=== PATIENT | female | born 1940 | race Caucasian/White ===

== ENCOUNTER → 2016-03-20 | Outpatient (REF) | payer MEDICARE, OTHER ==
[2016-03-20 12:44] LABS: MEAN CORPUSCULAR HEMOGLOBIN 30.3 pg (27.0-33.0); MEAN CORPUSCULAR VOLUME 94.9 fl (80.0-96.0); RED CELL DISTRIBUTION WIDTH 12.6 % (11.5-14.5); WHITE BLOOD COUNT 6.7 K/mm3 (4.0-10.0)
[2016-03-20 12:52] LABS: ALBUMIN 3.8 GM/DL (3.2-5.2); ALBUMIN/GLOBULIN RATIO 1.12 (1.00-1.93); BILIRUBIN,TOTAL 0.4 MG/DL (0.2-1.0); CALCIUM LEVEL 9.8 MG/DL (8.8-10.2); CREATININE FOR GFR 1.3 MG/DL (0.55-1.02); GLOMERULAR FILTRATION RATE 42.5 (>39); TOTAL PROTEIN 7.2 GM/DL (6.4-8.2)
[2016-03-20 12:54] LABS: POTASSIUM SERUM 5.5 MEQ/L (3.5-5.1)
== END ==
PROVIDERS: ATTEND Nurse Practitioner Family
DX: S81.802A Unspecified open wound, left lower leg, initial encounter (principal); X58.XXXA Exposure to other specified factors, initial encounter; Y92.9 Unspecified place or not applicable; Y93.9 Activity, unspecified; Y99.9 Unspecified external cause status

== ENCOUNTER → 2016-07-25 | Outpatient (REF) | payer MEDICARE, OTHER | LOC: M LAB REF 12:40 | PROVIDERS: ATTEND Nurse Practitioner Family | DX: S81.802A Unspecified open wound, left lower leg, initial encounter (principal); X58.XXXA Exposure to other specified factors, initial encounter; Y92.9 Unspecified place or not applicable; Y93.9 Activity, unspecified; Y99.8 Other external cause status ==

== ENCOUNTER → 2016-07-31 | Outpatient (REF) | payer MEDICARE, OTHER ==
[2016-07-31 10:56] LABS: MEAN CORPUSCULAR HEMOGLOBIN 31.7 pg (27.0-33.0); MEAN CORPUSCULAR VOLUME 96.1 fl (80.0-96.0); RED CELL DISTRIBUTION WIDTH 13.4 % (11.5-14.5); WHITE BLOOD COUNT 5.4 K/mm3 (4.0-10.0)
[2016-07-31 11:36] LABS: ALBUMIN 3.6 GM/DL (3.2-5.2); BILIRUBIN,TOTAL 0.5 MG/DL (0.2-1.0); CALCIUM LEVEL 9.3 MG/DL (8.8-10.2); CREATININE FOR GFR 1.19 MG/DL (0.55-1.02); GLOMERULAR FILTRATION RATE 46.9 (>39); POTASSIUM SERUM 4.3 MEQ/L (3.5-5.1); TOTAL PROTEIN 7.2 GM/DL (6.4-8.2)
== END ==
PROVIDERS: ATTEND Nurse Practitioner Family
DX: E03.9 Hypothyroidism, unspecified (principal); N18.9 Chronic kidney disease, unspecified

== ENCOUNTER → 2016-11-09 | Outpatient (REF) | payer MEDICARE, OTHER, MEDICAID | LOC: M LAB REF 16:24 | PROVIDERS: ATTEND Nurse Practitioner Family | DX: L03.116 Cellulitis of left lower limb (principal) ==

== ENCOUNTER → 2017-02-13 | Outpatient (REF) | payer MEDICARE, OTHER, MEDICAID | LOC: M LAB REF 12:53 | DX: S81.802A Unspecified open wound, left lower leg, initial encounter (principal); I87.2 Venous insufficiency (chronic) (peripheral); X58.XXXA Exposure to other specified factors, initial encounter; Y92.9 Unspecified place or not applicable; Y99.9 Unspecified external cause status | CPT/HCPCS: 87186 ==

== ENCOUNTER → 2017-04-23 | Outpatient (REF) | payer MEDICARE, OTHER, MEDICAID | LOC: M LAB REF 04-24 11:43 | DX: S81.802A Unspecified open wound, left lower leg, initial encounter (principal); S81.801A Unspecified open wound, right lower leg, initial encounter; X58.XXXA Exposure to other specified factors, initial encounter; Y92.9 Unspecified place or not applicable; Y93.9 Activity, unspecified | CPT/HCPCS: 87070; 87077; 87186 ==

== ENCOUNTER 2017-05-15 14:01 | Outpatient (RCR) | payer MEDICARE, OTHER, MEDICAID | END 2017-06-10 | LOC: M PT 14:01 | DX: Z51.89 Encounter for other specified aftercare (principal); I89.0 Lymphedema, not elsewhere classified | CPT/HCPCS: 97140 ==

== ENCOUNTER → 2017-06-07 | Outpatient (CLI) | payer MEDICARE, OTHER, MEDICAID | LOC: M RAD 10:16 | DX: I87.312 Chronic venous hypertension (idiopathic) with ulcer of left lower extremity (principal) | CPT/HCPCS: 93971 ==

== ENCOUNTER 2017-06-12 13:16 | Outpatient (RCR) | payer MEDICARE, OTHER, MEDICAID | END 2017-07-11 | LOC: M PT 13:16 | DX: Z51.89 Encounter for other specified aftercare (principal); I89.0 Lymphedema, not elsewhere classified | CPT/HCPCS: 97140 ==

== ENCOUNTER → 2017-06-14 | Outpatient (REF) | payer MEDICARE, OTHER, MEDICAID ==
[2017-06-14 10:02] LABS: HEMATOCRIT 41.1 % (36.0-47.0); HEMOGLOBIN 12.8 g/dl (12.0-15.5); MEAN CORPUSCULAR HEMOGLOBIN 29.4 pg (27.0-33.0); MEAN CORPUSCULAR HGB CONC 31.1 g/dl (32.0-36.5); MEAN CORPUSCULAR VOLUME 94.5 fl (80.0-96.0); PLATELET COUNT, AUTOMATED 249 10^3/uL (150-450); RED BLOOD COUNT 4.35 10^6/uL (4.00-5.40); RED CELL DISTRIBUTION WIDTH 13.1 % (11.5-14.5); WHITE BLOOD COUNT 6.7 10^3/uL (4.0-10.0)
[2017-06-14 10:34] LABS: ALBUMIN 3.3 GM/DL (3.2-5.2); ALBUMIN/GLOBULIN RATIO 0.85 (1.00-1.93); ALKALINE PHOSPHATASE 76 U/L (45-117); ALT/SGPT 16 U/L (12-78); ANION GAP 10 MEQ/L (8-16); AST/SGOT 16 U/L (7-37); BILIRUBIN,TOTAL 0.4 MG/DL (0.2-1.0); BLOOD UREA NITROGEN 28 MG/DL (7-18); CALCIUM LEVEL 9.1 MG/DL (8.8-10.2); CARBON DIOXIDE LEVEL 29 MEQ/L (21-32); CHLORIDE LEVEL 103 MEQ/L (98-107); CREATININE FOR GFR 1.18 MG/DL (0.55-1.30); GLOMERULAR FILTRATION RATE 47.3 (>39); GLUCOSE, FASTING 96 MG/DL (70-100); POTASSIUM SERUM 4.2 MEQ/L (3.5-5.1); SODIUM LEVEL 142 MEQ/L (136-145); TOTAL PROTEIN 7.2 GM/DL (6.4-8.2)
[2017-06-14 11:42] LABS: ESTIMATED AVERAGE GLUCOSE 111 MG/DL (60-110); HEMOGLOBIN A1c 5.5 %
== END ==
DX: I10 Essential (primary) hypertension (principal); E66.9 Obesity, unspecified
CPT/HCPCS: 80053

== ENCOUNTER 2017-07-12 13:09 | Outpatient (RCR) | payer MEDICARE, OTHER, MEDICAID | END 2017-08-10 | LOC: M PT 07-16 13:24 | DX: Z51.89 Encounter for other specified aftercare (principal); I89.0 Lymphedema, not elsewhere classified | CPT/HCPCS: 97140 ==

== ENCOUNTER 2017-08-12 12:50 | Outpatient (RCR) | payer MEDICARE, OTHER, MEDICAID | END 2017-09-10 | LOC: M PT 12:50 | DX: Z51.89 Encounter for other specified aftercare (principal); I89.0 Lymphedema, not elsewhere classified | CPT/HCPCS: 97140 ==

== ENCOUNTER → 2017-12-31 | Outpatient (REF) | payer MEDICARE, OTHER, MEDICAID ==
[2017-12-31 10:44] LABS: HEMATOCRIT 41.2 % (36.0-47.0); MEAN CORPUSCULAR HEMOGLOBIN 30.1 pg (27.0-33.0); MEAN CORPUSCULAR HGB CONC 31.6 g/dl (32.0-36.5); MEAN CORPUSCULAR VOLUME 95.4 fl (80.0-96.0); PLATELET COUNT, AUTOMATED 192 10^3/uL (150-450); RED BLOOD COUNT 4.32 10^6/uL (4.00-5.40); RED CELL DISTRIBUTION WIDTH 13.3 % (11.5-14.5); WHITE BLOOD COUNT 5.5 10^3/uL (4.0-10.0)
[2017-12-31 11:23] LABS: ALBUMIN 3.5 GM/DL (3.2-5.2); ALBUMIN/GLOBULIN RATIO 0.95 (1.00-1.93); ALKALINE PHOSPHATASE 71 U/L (45-117); ALT/SGPT 21 U/L (12-78); ANION GAP 9 MEQ/L (8-16); AST/SGOT 19 U/L (7-37); BILIRUBIN,TOTAL 0.4 MG/DL (0.2-1.0); BLOOD UREA NITROGEN 27 MG/DL (7-18); CALCIUM LEVEL 9.3 MG/DL (8.8-10.2); CARBON DIOXIDE LEVEL 27 MEQ/L (21-32); CHLORIDE LEVEL 105 MEQ/L (98-107); GLOMERULAR FILTRATION RATE 57.2 (>39); GLUCOSE, FASTING 89 MG/DL (70-100); POTASSIUM SERUM 4.3 MEQ/L (3.5-5.1); SODIUM LEVEL 141 MEQ/L (136-145); TOTAL PROTEIN 7.2 GM/DL (6.4-8.2)
== END ==
DX: I95.9 Hypotension, unspecified (principal); Z79.899 Other long term (current) drug therapy
CPT/HCPCS: 84443

== ENCOUNTER → 2018-12-30 | Outpatient (REF) | payer MEDICARE, OTHER, MEDICAID ==
[2018-12-30 10:14] LABS: CALCIUM LEVEL 9.8 MG/DL (8.8-10.2); CREATININE FOR GFR 1.19 MG/DL (0.55-1.30); GLOMERULAR FILTRATION RATE 46.7 (>39); POTASSIUM SERUM 4.2 MEQ/L (3.5-5.1)
== END ==
PROVIDERS: ATTEND Nurse Practitioner Adult Health
DX: Z79.899 Other long term (current) drug therapy (principal)

== ENCOUNTER → 2019-06-30 | Outpatient (REF) | payer MEDICARE, OTHER, MEDICAID ==
[2019-06-30 12:51] LABS: HEMOGLOBIN 12.7 g/dl (12.0-15.5); MEAN CORPUSCULAR VOLUME 96.9 fl (80.0-96.0); PLATELET COUNT, AUTOMATED 176 10^3/uL (150-450); RED BLOOD COUNT 4.23 10^6/uL (4.00-5.40); WHITE BLOOD COUNT 5.6 10^3/uL (4.0-10.0)
[2019-06-30 13:24] LABS: ALBUMIN 3.2 GM/DL (3.2-5.2); BILIRUBIN,TOTAL 0.4 MG/DL (0.2-1.0); CALCIUM LEVEL 9.4 MG/DL (8.8-10.2); CREATININE FOR GFR 1.12 MG/DL (0.55-1.30); POTASSIUM SERUM 4.6 MEQ/L (3.5-5.1); THYROID STIMULATING HORMONE 1.93 uIU/ML (0.358-3.740); TOTAL PROTEIN 6.8 GM/DL (6.4-8.2)
== END ==
PROVIDERS: ATTEND Registered Nurse
DX: I10 Essential (primary) hypertension (principal)

== ENCOUNTER → 2020-01-22 | Outpatient (REF) | payer MEDICARE, OTHER, MEDICAID | PROVIDERS: ATTEND Internal Medicine | DX: Z20.828 Contact with and (suspected) exposure to other viral communicable diseases (principal) ==

== ENCOUNTER → 2020-01-27 | Outpatient (REF) | payer MEDICARE, OTHER, MEDICAID ==
[2020-01-27 16:45] LABS: INFLUENZA A AMPLIFICATION NEGATIVE (NEGATIVE); INFLUENZA B AMPLIFICATION NEGATIVE (NEGATIVE)
== END ==
PROVIDERS: ATTEND Internal Medicine
DX: Z20.828 Contact with and (suspected) exposure to other viral communicable diseases (principal)
CPT/HCPCS: 87502; U0003

== ENCOUNTER 2020-01-30 12:45 | Outpatient (CLI) | payer MEDICARE, OTHER, MEDICAID ==
[2020-01-30 12:45] VITALS: BP 171/77
[~2020-01-30 12:45] MED LIST: ALBUTEROL 90 MCG/ACT 8GM HFA INHALER INH PRN; ALBUTEROL SULFATE 2.5 MG/0.5 ML INH NEB SOLN INH PRN; EPINEPHrine INJ 1 MG/ML 1ML AMP IM PRN; NS 1,000 ML IV SCH; diphenhydrAMINE 50MG/ML VIAL (J1200) IV PRN; methylPREDNISolone 125MG 2ML VIAL IV PRN
[2020-01-30] MEDS ORDERED: BAMLANIVIMAB 700 MG in NS 180 ML IV ONE (14:00)
[2020-01-30 15:10] VITALS: BP 174/76
[2020-01-30] MEDS ORDERED: ACETAMINOPHEN TAB 650MG DOSE (2X325MG) PO ONE (15:30)
[2020-01-30] MEDS ORDERED: methylPREDNISolone 125MG 2ML VIAL IV ONE (15:30)
[2020-01-30 16:14] VITALS: BP 167/71
[2020-01-30 16:44] VITALS: BP 174/86
[2020-01-30 17:12] VITALS: BP 179/75
[2020-01-30 18:31] VITALS: BP 184/77
== END 2020-01-30 18:45 | disposition home or self-care (01) ==
LOC: M OPCLI4 12:45 → M 4MAIN 12:45 → M OPCLI4 18:45
PROVIDERS: ATTEND Internal Medicine
DX: U07.1 COVID-19 (principal); Z88.0 Allergy status to penicillin
CPT/HCPCS: 96374; J2930; M0239

== ENCOUNTER → 2020-02-01 | Outpatient (REF) | payer MEDICARE, OTHER, MEDICAID | PROVIDERS: ATTEND Internal Medicine | DX: Z20.828 Contact with and (suspected) exposure to other viral communicable diseases (principal) ==

== ENCOUNTER → 2020-02-08 | Outpatient (REF) | payer MEDICARE, OTHER, MEDICAID | PROVIDERS: ATTEND Internal Medicine | DX: Z20.828 Contact with and (suspected) exposure to other viral communicable diseases (principal) ==

== ENCOUNTER → 2020-02-15 | Outpatient (REF) | payer MEDICARE, OTHER, MEDICAID | PROVIDERS: ATTEND Internal Medicine | DX: Z11.52 Encounter for screening for COVID-19 (principal) ==

== ENCOUNTER → 2020-02-22 | Outpatient (REF) | payer MEDICARE, OTHER, MEDICAID | PROVIDERS: ATTEND Internal Medicine | DX: Z20.822 Contact with and (suspected) exposure to COVID-19 (principal) ==

== ENCOUNTER → 2020-02-29 | Outpatient (REF) | payer MEDICARE, OTHER, MEDICAID | PROVIDERS: ATTEND Internal Medicine | DX: Z20.822 Contact with and (suspected) exposure to COVID-19 (principal) ==

== ENCOUNTER → 2020-03-07 | Outpatient (REF) | payer MEDICARE, OTHER, MEDICAID | PROVIDERS: ATTEND Internal Medicine | DX: Z20.822 Contact with and (suspected) exposure to COVID-19 (principal) ==

== ENCOUNTER → 2020-03-14 | Outpatient (REF) | payer MEDICARE, OTHER, MEDICAID | PROVIDERS: ATTEND Internal Medicine | DX: Z20.822 Contact with and (suspected) exposure to COVID-19 (principal) ==

== ENCOUNTER → 2020-03-21 | Outpatient (REF) | payer MEDICARE, OTHER, MEDICAID | PROVIDERS: ATTEND Internal Medicine | DX: Z20.822 Contact with and (suspected) exposure to COVID-19 (principal) ==

== ENCOUNTER → 2020-03-28 | Outpatient (REF) | payer MEDICARE, OTHER, MEDICAID | PROVIDERS: ATTEND Internal Medicine | DX: Z20.822 Contact with and (suspected) exposure to COVID-19 (principal) ==

== ENCOUNTER → 2020-06-07 | Outpatient (REF) | payer MEDICARE, OTHER, MEDICAID ==
[2020-06-07 11:04] LABS: BASO # 0.1 10^3/uL (0.0-0.2); BASO % 1.1 % (0.0-1.0); EOS # 0.2 10^3/uL (0.0-0.5); EOS % 3.8 % (0.0-3.0); HEMATOCRIT 44.1 % (36.0-47.0); HEMOGLOBIN 13.4 g/dl (12.0-15.5); LYMPH # 1.4 10^3/uL (1.5-5.0); LYMPH % 29.6 % (24.0-44.0); MEAN CORPUSCULAR HEMOGLOBIN 29.8 pg (27.0-33.0); MEAN CORPUSCULAR HGB CONC 30.4 g/dl (32.0-36.5); MEAN CORPUSCULAR VOLUME 98.2 fl (80.0-96.0); MONO # 0.5 10^3/uL (0.0-0.8); MONO % 9.5 % (2.0-8.0); NEUTROPHILS # 2.6 10^3/uL (1.5-8.5); NEUTROPHILS % 55.8 % (36.0-66.0); PLATELET COUNT, AUTOMATED 179 10^3/uL (150-450); RED BLOOD COUNT 4.49 10^6/uL (4.00-5.40); WHITE BLOOD COUNT 4.7 10^3/uL (4.0-10.0)
[2020-06-07 11:33] LABS: ALBUMIN 3.7 GM/DL (3.2-5.2); ALT/SGPT 16 U/L (12-78); BILIRUBIN,TOTAL 0.4 MG/DL (0.2-1.0); BLOOD UREA NITROGEN 24 MG/DL (7-18); CALCIUM LEVEL 9.8 MG/DL (8.8-10.2); CARBON DIOXIDE LEVEL 31 MEQ/L (21-32); CHLORIDE LEVEL 102 MEQ/L (98-107); CHOLESTEROL LEVEL 162 MG/DL (<200); CHOLESTEROL RISK RATIO 2.655 (<5); CREATININE FOR GFR 0.93 MG/DL (0.55-1.30); GLOMERULAR FILTRATION RATE > 60.0 (>32); GLUCOSE, FASTING 93 MG/DL (70-100); HDL CHOLESTEROL 61 MG/DL (>40); LDL CHOLESTEROL 78 MG/DL (<100); NON-HDL-C 101 MG/DL; POTASSIUM SERUM 4.1 MEQ/L (3.5-5.1); SODIUM LEVEL 139 MEQ/L (136-145); TOTAL PROTEIN 7.5 GM/DL (6.4-8.2); TRIGLYCERIDES LEVEL 113 MG/DL (<150)
== END ==
PROVIDERS: ATTEND Nurse Practitioner Adult Health
DX: E78.2 Mixed hyperlipidemia (principal); M15.0 Primary generalized (osteo)arthritis; I10 Essential (primary) hypertension

== ENCOUNTER 2021-11-23 11:03 | Inpatient (IN) | payer MEDICARE, OTHER, MEDICAID ==
[~2021-11-23] VITALS: Ht 170.2 cm; Wt 167.3 kg
[2021-11-23] MEDS ORDERED: CEFTAROLINE FOSAMIL 600 MG in D5W MINI-BAG PLUS 50 ML IV ONE (11:45)
[2021-11-23 12:47] LABS: HEMATOCRIT 36.5 % (36.0-47.0); HEMOGLOBIN 11.5 g/dl (12.0-15.5); MEAN CORPUSCULAR HGB CONC 31.5 g/dl (32.0-36.5); MEAN CORPUSCULAR VOLUME 98.4 fl (80.0-96.0); PLATELET COUNT, AUTOMATED 152 10^3/uL (150-450); RED BLOOD COUNT 3.71 10^6/uL (4.00-5.40); WHITE BLOOD COUNT 23.4 10^3/uL (4.0-10.0)
[2021-11-23] MEDS ORDERED: ACETAMINOPHEN TAB 650MG DOSE (2X325MG) PO ONE (12:55)
[2021-11-23] MEDS ORDERED: TRAM50TA2 PO (13:17)
[2021-11-23] MEDS ORDERED: D3 S20002 PO (13:17)
[2021-11-23] MEDS ORDERED: METO1TAB7 PO (13:17)
[2021-11-23] MEDS ORDERED: TOLT4CAP3 PO (13:17)
[2021-11-23] MEDS ORDERED: HALO0.052 TOP (13:17)
[2021-11-23] MEDS ORDERED: BENG1CRE TOP (13:17)
[2021-11-23] MEDS ORDERED: OMEP1CAP71 PO (13:17)
[2021-11-23] MEDS ORDERED: SENN-80 PO (13:17)
[2021-11-23] MEDS ORDERED: MILKSUS3 PO (13:17)
[2021-11-23] MEDS ORDERED: FURO20TA2 PO (13:17)
[2021-11-23] MEDS ORDERED: EMOL454O TP (13:17)
[2021-11-23] MEDS ORDERED: ACET-683 PO (13:17)
[2021-11-23] MEDS ORDERED: ROSU20TA5 PO (13:17)
[2021-11-23] MEDS ORDERED: OMEG10002 PO (13:17)
[2021-11-23] MEDS ORDERED: VALA1TAB5 PO (13:17)
[2021-11-23] MEDS ORDERED: POTA10TA67 PO (13:17)
[2021-11-23] MEDS ORDERED: LEVO25TA5 PO (13:17)
[2021-11-23 13:18] LABS: ATYPICAL LYMPH 1 % (0-5); LYMPHOCYTES 2 % (16-44); METAMYELOCYTES 5 % (0-0); MONOCYTES 2 % (0-5); NEUTROPHILS 59 % (28-66)
[2021-11-23 13:20] LABS: PLATELET ESTIMATE NORMAL (NORMAL); RSV AMPLIFICATION NEGATIVE (NEGATIVE)
[2021-11-23] MEDS ORDERED: HOME MED LIST COMPLETE! XX SCH (13:20)
[2021-11-23 13:22] LABS: ERYTHROCYTE SEDIMENTATION RATE 52 mm/hr (0-30)
[2021-11-23 13:39] LABS: BILIRUBIN,DIRECT 0.3 MG/DL (0.0-0.2); BILIRUBIN,TOTAL 0.7 MG/DL (0.2-1.0); CALCIUM LEVEL 9.4 MG/DL (8.8-10.2); CREATININE FOR GFR 1.52 MG/DL (0.55-1.30); GLOMERULAR FILTRATION RATE 34.9 (>32); POTASSIUM SERUM 4.2 MEQ/L (3.5-5.1); THYROID STIMULATING HORMONE 1.09 uIU/ML (0.358-3.740); TOTAL PROTEIN 6.2 GM/DL (6.4-8.2)
[2021-11-23] MEDS ORDERED: VANCOMYCIN HCL 750 MG, VIAL MATE ADAPTER 1 EACH in NS 250 ML IV SCH (15:00)
[2021-11-23] MEDS: NS 1,000 ML IV SCH ×3 (16:35→19:51)
[2021-11-23 17:00] VITALS: BP 156/65
[2021-11-23] MEDS ORDERED: MOM 30ML SUSPENSION UDC PO PRN (17:35)
[2021-11-23] MEDS: traMADol 50 MG TAB PO SCH (19:51)
[2021-11-23] MEDS: HEPARIN SOD (PORCINE) 5000UNITS/ML 1ML VIAL/SYRINGE SC SCH (20:28)
[2021-11-23] MEDS: SENNA 8.6 MG TAB (SENOKOT) PO SCH (20:28)
[2021-11-23] MEDS: ROSUVASTATIN 10 MG TAB (CRESTOR) PO SCH (20:28)
[2021-11-23] MEDS: ACETAMINOPHEN TAB 650MG DOSE (2X325MG) PO PRN (20:50)
[2021-11-23] MEDS ORDERED: VANCOMYCIN HCL 1,000 MG, VIAL MATE ADAPTER 1 EACH in NS 250 ML IV ONE ×2 (21:00→22:00)
[2021-11-23 22:00] VITALS: BP 152/92
[2021-11-24] MEDS ORDERED: cefTRIAXone SOD 1 GM in D5W MINI-BAG PLUS 50 ML IV SCH (02:00)
[2021-11-24] MEDS ORDERED: oxyCODONE 5MG TAB PO ONE (02:10)
[2021-11-24] MEDS: CEFEPIME HCL 2 GM in D5W MINI-BAG PLUS 50 ML IV SCH ×2 (02:16→14:09)
[2021-11-24] MEDS: LEVOTHYROXINE 25MCG TABLET (0.025MG) PO SCH (05:50)
[2021-11-24 06:00] VITALS: BP 158/61
[2021-11-24 06:32] LABS: HEMATOCRIT 36.6 % (36.0-47.0); HEMOGLOBIN 11.4 g/dl (12.0-15.5); MEAN CORPUSCULAR HEMOGLOBIN 30.8 pg (27.0-33.0); MEAN CORPUSCULAR HGB CONC 31.1 g/dl (32.0-36.5); MEAN CORPUSCULAR VOLUME 98.9 fl (80.0-96.0); PLATELET COUNT, AUTOMATED 128 10^3/uL (150-450); WHITE BLOOD COUNT 17.7 10^3/uL (4.0-10.0)
[2021-11-24 07:06] LABS: C REACTIVE PROTEIN QUANTITATIV 19.7 MG/DL (0.00-0.30); CALCIUM LEVEL 8.9 MG/DL (8.8-10.2); CREATININE FOR GFR 1.14 MG/DL (0.55-1.30); GLOMERULAR FILTRATION RATE 48.7 (>32); POTASSIUM SERUM 3.7 MEQ/L (3.5-5.1)
[2021-11-24 07:14] LABS: HEMOGLOBIN A1c 5.6 %
[2021-11-24 07:20] LABS: ATYPICAL LYMPH 2 % (0-5); LYMPHOCYTES 7 % (16-44); MONOCYTES 4 % (0-5); NEUTROPHILS 62 % (28-66)
[2021-11-24 07:22] LABS: PLATELET ESTIMATE DECREASED (NORMAL)
[2021-11-24] MEDS ORDERED: FLUBLOK(EGG FREE)(QUAD)INFLUENZA VACC 0.5ML SYRINGE 18YRS & OLDER IM.IMMUN ONE (09:00)
[2021-11-24] MEDS: OMEGA-3 1000MG CAPSULE PO SCH (09:13)
[2021-11-24] MEDS: NS 1,000 ML IV SCH (09:14)
[2021-11-24] MEDS: traMADol 50 MG TAB PO SCH ×3 (09:15→21:26)
[2021-11-24] MEDS: HEPARIN SOD (PORCINE) 5000UNITS/ML 1ML VIAL/SYRINGE SC SCH ×2 (09:18→21:25)
[2021-11-24] MEDS: METOPROLOL SUCC (TopROL XL) 50MG **XL** TAB PO SCH (09:18)
[2021-11-24] MEDS: LIDOCAINE 5% (LIDODERM) PATCH TD SCH (09:18)
[2021-11-24] MEDS ORDERED: NYSTATIN CREAM 15GM TOP PRN (10:35)
[2021-11-24] MEDS ORDERED: VANCOMYCIN HCL 750 MG, VIAL MATE ADAPTER 1 EACH in D5W 250 ML IV SCH (12:00)
[2021-11-24] MEDS: VANCOMYCIN HCL 1,000 MG, VIAL MATE ADAPTER 1 EACH in D5W 250 ML IV SCH (12:10)
[2021-11-24] MEDS: TOLTERODINE TARTRATE 2 MG LA CAP (DETROL LA) PO SCH (12:10)
[2021-11-24] MEDS: OMEPRAZOLE SUSPENSION 20MG 10ML ORAL SYRINGE PO SCH (12:11)
[2021-11-24] MEDS ORDERED: VANCOMYCIN HCL 500 MG in D5W MINI-BAG PLUS 100 ML IV SCH (13:00)
[2021-11-24 14:00] VITALS: BP 126/57
[2021-11-24] MEDS: ROSUVASTATIN 10 MG TAB (CRESTOR) PO SCH (21:25)
[2021-11-24] MEDS: SENNA 8.6 MG TAB (SENOKOT) PO SCH (21:25)
[2021-11-24 22:00] VITALS: BP 129/58
[2021-11-25] MEDS: VANCOMYCIN HCL 1,000 MG, VIAL MATE ADAPTER 1 EACH in D5W 250 ML IV SCH ×2 (00:23→12:15)
[2021-11-25] MEDS: CEFEPIME HCL 2 GM in D5W MINI-BAG PLUS 50 ML IV SCH ×2 (02:08→13:44)
[2021-11-25] MEDS: LEVOTHYROXINE 25MCG TABLET (0.025MG) PO SCH (05:48)
[2021-11-25 06:00] VITALS: BP 131/56
[2021-11-25 06:27] LABS: BASO % 0.3 % (0.0-1.0); EOS # 0.1 10^3/uL (0.0-0.5); EOS % 0.6 % (0.0-3.0); HEMATOCRIT 33.6 % (36.0-47.0); HEMOGLOBIN 10.5 g/dl (12.0-15.5); LYMPH # 1.1 10^3/uL (1.5-5.0); LYMPH % 8.3 % (24.0-44.0); MEAN CORPUSCULAR HEMOGLOBIN 30.4 pg (27.0-33.0); MEAN CORPUSCULAR HGB CONC 31.3 g/dl (32.0-36.5); MEAN CORPUSCULAR VOLUME 97.4 fl (80.0-96.0); MONO % 7.1 % (2.0-8.0); NEUTROPHILS # 11.4 10^3/uL (1.5-8.5); NEUTROPHILS % 82.8 % (36.0-66.0); PLATELET COUNT, AUTOMATED 141 10^3/uL (150-450); RED BLOOD COUNT 3.45 10^6/uL (4.00-5.40); WHITE BLOOD COUNT 13.7 10^3/uL (4.0-10.0)
[2021-11-25 06:59] LABS: C REACTIVE PROTEIN QUANTITATIV 17.9 MG/DL (0.00-0.30); CREATININE FOR GFR 1.04 MG/DL (0.55-1.30); GLOMERULAR FILTRATION RATE 54.1 (>32); POTASSIUM SERUM 3.8 MEQ/L (3.5-5.1)
[2021-11-25] MEDS: OMEGA-3 1000MG CAPSULE PO SCH (10:28)
[2021-11-25] MEDS: OMEPRAZOLE SUSPENSION 20MG 10ML ORAL SYRINGE PO SCH (10:30)
[2021-11-25] MEDS: traMADol 50 MG TAB PO SCH ×3 (10:30→20:47)
[2021-11-25] MEDS: HEPARIN SOD (PORCINE) 5000UNITS/ML 1ML VIAL/SYRINGE SC SCH ×2 (10:30→20:48)
[2021-11-25] MEDS: LIDOCAINE 5% (LIDODERM) PATCH TD SCH (10:31)
[2021-11-25] MEDS: METOPROLOL SUCC (TopROL XL) 50MG **XL** TAB PO SCH (10:32)
[2021-11-25] MEDS: NYSTATIN 100,000 UNITS/GM TOPICAL PWD 15 GM TOP PRN (10:34)
[2021-11-25] MEDS ORDERED: valACYclovir HCL 500 MG TAB PO PRN (12:35)
[2021-11-25] MEDS: TOLTERODINE TARTRATE 2 MG LA CAP (DETROL LA) PO SCH (13:44)
[2021-11-25] MEDS: ACETAMINOPHEN TAB 650MG DOSE (2X325MG) PO PRN (13:45)
[2021-11-25 14:00] VITALS: BP 139/63
[2021-11-25 20:00] VITALS: BP 130/71
[2021-11-25] MEDS: SENNA 8.6 MG TAB (SENOKOT) PO SCH (20:47)
[2021-11-25] MEDS: ROSUVASTATIN 10 MG TAB (CRESTOR) PO SCH (20:48)
[2021-11-26] MEDS: CEFEPIME HCL 2 GM in D5W MINI-BAG PLUS 50 ML IV SCH ×2 (02:02→14:58)
[2021-11-26] MEDS: LEVOTHYROXINE 25MCG TABLET (0.025MG) PO SCH (05:42)
[2021-11-26] MEDS: VANCOMYCIN HCL 1,000 MG, VIAL MATE ADAPTER 1 EACH in D5W 250 ML IV SCH (05:42)
[2021-11-26 06:00] VITALS: BP 137/70
[2021-11-26 06:48] LABS: BASO # 0.1 10^3/uL (0.0-0.2); BASO % 0.6 % (0.0-1.0); EOS # 0.2 10^3/uL (0.0-0.5); EOS % 2.5 % (0.0-3.0); HEMATOCRIT 35.7 % (36.0-47.0); HEMOGLOBIN 11.1 g/dl (12.0-15.5); LYMPH # 1.1 10^3/uL (1.5-5.0); LYMPH % 11.9 % (24.0-44.0); MEAN CORPUSCULAR HGB CONC 31.1 g/dl (32.0-36.5); MEAN CORPUSCULAR VOLUME 96.5 fl (80.0-96.0); MONO # 0.8 10^3/uL (0.0-0.8); NEUTROPHILS # 6.9 10^3/uL (1.5-8.5); NEUTROPHILS % 75.6 % (36.0-66.0); PLATELET COUNT, AUTOMATED 156 10^3/uL (150-450); WHITE BLOOD COUNT 9.1 10^3/uL (4.0-10.0)
[2021-11-26 07:23] LABS: BLOOD UREA NITROGEN 20 MG/DL (7-18); C REACTIVE PROTEIN QUANTITATIV 9.97 MG/DL (0.00-0.30); CALCIUM LEVEL 8.8 MG/DL (8.8-10.2); CARBON DIOXIDE LEVEL 26 MEQ/L (21-32); CHLORIDE LEVEL 107 MEQ/L (98-107); CREATININE FOR GFR 0.85 MG/DL (0.55-1.30); GLOMERULAR FILTRATION RATE > 60.0 (>32); GLUCOSE, FASTING 104 MG/DL (70-100); POTASSIUM SERUM 4.1 MEQ/L (3.5-5.1); SODIUM LEVEL 137 MEQ/L (136-145)
[2021-11-26] MEDS: OMEPRAZOLE SUSPENSION 20MG 10ML ORAL SYRINGE PO SCH (10:21)
[2021-11-26] MEDS: LIDOCAINE 5% (LIDODERM) PATCH TD SCH (10:22)
[2021-11-26] MEDS: HEPARIN SOD (PORCINE) 5000UNITS/ML 1ML VIAL/SYRINGE SC SCH ×2 (10:22→20:33)
[2021-11-26] MEDS: TOLTERODINE TARTRATE 2 MG LA CAP (DETROL LA) PO SCH (10:22)
[2021-11-26] MEDS: OMEGA-3 1000MG CAPSULE PO SCH (10:22)
[2021-11-26] MEDS: traMADol 50 MG TAB PO SCH ×3 (10:25→20:33)
[2021-11-26] MEDS: METOPROLOL SUCC (TopROL XL) 50MG **XL** TAB PO SCH (10:26)
[2021-11-26] MEDS ORDERED: ISOVUE-370 76% 100ML VIAL As Ordered ONE (11:17)
[2021-11-26] MEDS ORDERED: BISACODYL 10 MG SUPP PR ONE (12:00)
[2021-11-26] MEDS: MOM 30ML SUSPENSION UDC PO PRN (12:57)
[2021-11-26] MEDS: MIRALAX *UNIT DOSE* 17GM PACKET PO SCH (12:57)
[2021-11-26 15:00] VITALS: BP 155/73
[2021-11-26] MEDS ORDERED: IBUPROFEN 400MG TAB PO PRN (16:10)
[2021-11-26] MEDS ORDERED: BISACODYL 10 MG SUPP PR PRN (16:20)
[2021-11-26] MEDS: DOXYCYCLINE HYCLATE 100MG TABLET PO SCH (20:32)
[2021-11-26] MEDS: SENNA 8.6 MG TAB (SENOKOT) PO SCH (20:32)
[2021-11-26] MEDS: ROSUVASTATIN 10 MG TAB (CRESTOR) PO SCH (20:32)
[2021-11-27 04:20] VITALS: BP 153/75
[2021-11-27] MEDS: LEVOTHYROXINE 50MCG TABLET (0.05MG) PO SCH (05:11)
[2021-11-27 05:41] LABS: BASO # 0.1 10^3/uL (0.0-0.2); BASO % 0.8 % (0.0-1.0); EOS # 0.2 10^3/uL (0.0-0.5); EOS % 2.5 % (0.0-3.0); HEMOGLOBIN 11.3 g/dl (12.0-15.5); LYMPH # 1.2 10^3/uL (1.5-5.0); LYMPH % 15.3 % (24.0-44.0); MEAN CORPUSCULAR HEMOGLOBIN 29.7 pg (27.0-33.0); MEAN CORPUSCULAR HGB CONC 30.5 g/dl (32.0-36.5); MEAN CORPUSCULAR VOLUME 97.1 fl (80.0-96.0); MONO # 0.9 10^3/uL (0.0-0.8); MONO % 11.1 % (2.0-8.0); NEUTROPHILS # 5.5 10^3/uL (1.5-8.5); NEUTROPHILS % 69.3 % (36.0-66.0); PLATELET COUNT, AUTOMATED 183 10^3/uL (150-450); RED BLOOD COUNT 3.81 10^6/uL (4.00-5.40); WHITE BLOOD COUNT 7.9 10^3/uL (4.0-10.0)
[2021-11-27 06:14] LABS: BLOOD UREA NITROGEN 18 MG/DL (7-18); CALCIUM LEVEL 9.2 MG/DL (8.8-10.2); CARBON DIOXIDE LEVEL 28 MEQ/L (21-32); CHLORIDE LEVEL 107 MEQ/L (98-107); CREATININE FOR GFR 0.82 MG/DL (0.55-1.30); GLOMERULAR FILTRATION RATE > 60.0 (>32); GLUCOSE, FASTING 94 MG/DL (70-100); POTASSIUM SERUM 4.6 MEQ/L (3.5-5.1); SODIUM LEVEL 139 MEQ/L (136-145)
[2021-11-27] MEDS: MIRALAX *UNIT DOSE* 17GM PACKET PO SCH (10:32)
[2021-11-27] MEDS: HEPARIN SOD (PORCINE) 5000UNITS/ML 1ML VIAL/SYRINGE SC SCH ×2 (10:32→21:11)
[2021-11-27] MEDS: LIDOCAINE 5% (LIDODERM) PATCH TD SCH (10:33)
[2021-11-27] MEDS: TOLTERODINE TARTRATE 2 MG LA CAP (DETROL LA) PO SCH (10:33)
[2021-11-27] MEDS: OMEPRAZOLE SUSPENSION 20MG 10ML ORAL SYRINGE PO SCH (10:33)
[2021-11-27] MEDS: DOXYCYCLINE HYCLATE 100MG TABLET PO SCH ×2 (10:34→21:10)
[2021-11-27] MEDS: METOPROLOL SUCC (TopROL XL) 50MG **XL** TAB PO SCH (10:34)
[2021-11-27] MEDS: traMADol 50 MG TAB PO SCH ×3 (10:35→21:10)
[2021-11-27] MEDS: OMEGA-3 1000MG CAPSULE PO SCH (10:35)
[2021-11-27] MEDS: MOM 30ML SUSPENSION UDC PO PRN (10:41)
[2021-11-27] MEDS: SENNA 8.6 MG TAB (SENOKOT) PO SCH (21:10)
[2021-11-27] MEDS: ROSUVASTATIN 10 MG TAB (CRESTOR) PO SCH (21:11)
[2021-11-28] MEDS: LEVOTHYROXINE 50MCG TABLET (0.05MG) PO SCH (05:32)
[2021-11-28 06:00] VITALS: BP 127/57
[2021-11-28 08:00] VITALS: BP 127/57
[2021-11-28] MEDS: MIRALAX *UNIT DOSE* 17GM PACKET PO SCH (09:00)
[2021-11-28] MEDS: DOXYCYCLINE HYCLATE 100MG TABLET PO SCH ×2 (10:28→20:16)
[2021-11-28] MEDS: OMEGA-3 1000MG CAPSULE PO SCH (10:28)
[2021-11-28] MEDS: traMADol 50 MG TAB PO SCH ×3 (10:30→20:17)
[2021-11-28] MEDS: HEPARIN SOD (PORCINE) 5000UNITS/ML 1ML VIAL/SYRINGE SC SCH ×2 (10:31→20:15)
[2021-11-28] MEDS: TOLTERODINE TARTRATE 2 MG LA CAP (DETROL LA) PO SCH (10:31)
[2021-11-28 10:32] VITALS: BP 185/80
[2021-11-28] MEDS: METOPROLOL SUCC (TopROL XL) 50MG **XL** TAB PO SCH (10:32)
[2021-11-28] MEDS: LIDOCAINE 5% (LIDODERM) PATCH TD SCH (10:32)
[2021-11-28] MEDS: OMEPRAZOLE SUSPENSION 20MG 10ML ORAL SYRINGE PO SCH (10:33)
[2021-11-28] MEDS: NYSTATIN 100,000 UNITS/GM TOPICAL PWD 15 GM TOP PRN (13:52)
[2021-11-28] MEDS: SENNA 8.6 MG TAB (SENOKOT) PO SCH (20:16)
[2021-11-28] MEDS: ROSUVASTATIN 10 MG TAB (CRESTOR) PO SCH (20:16)
[2021-11-29] MEDS: LEVOTHYROXINE 50MCG TABLET (0.05MG) PO SCH (05:46)
[2021-11-29 06:00] VITALS: BP 154/60
[2021-11-29] MEDS: OMEGA-3 1000MG CAPSULE PO SCH (08:45)
[2021-11-29] MEDS: MIRALAX *UNIT DOSE* 17GM PACKET PO SCH (08:45)
[2021-11-29] MEDS: TOLTERODINE TARTRATE 2 MG LA CAP (DETROL LA) PO SCH (08:46)
[2021-11-29] MEDS: HEPARIN SOD (PORCINE) 5000UNITS/ML 1ML VIAL/SYRINGE SC SCH ×2 (08:46→21:13)
[2021-11-29] MEDS: traMADol 50 MG TAB PO SCH ×3 (08:46→21:13)
[2021-11-29] MEDS: DOXYCYCLINE HYCLATE 100MG TABLET PO SCH ×2 (08:46→21:12)
[2021-11-29] MEDS: LIDOCAINE 5% (LIDODERM) PATCH TD SCH (08:46)
[2021-11-29] MEDS: OMEPRAZOLE SUSPENSION 20MG 10ML ORAL SYRINGE PO SCH (08:46)
[2021-11-29] MEDS: METOPROLOL SUCC (TopROL XL) 50MG **XL** TAB PO SCH (08:47)
[2021-11-29] MEDS: MOM 30ML SUSPENSION UDC PO PRN (16:12)
[2021-11-29] MEDS: SENNA 8.6 MG TAB (SENOKOT) PO SCH (21:00)
[2021-11-29] MEDS: ROSUVASTATIN 10 MG TAB (CRESTOR) PO SCH (21:13)
[2021-11-29] MEDS: NYSTATIN 100,000 UNITS/GM TOPICAL PWD 15 GM TOP PRN (21:14)
[2021-11-30] MEDS: LEVOTHYROXINE 50MCG TABLET (0.05MG) PO SCH (06:03)
[2021-11-30 06:09] VITALS: BP 176/64
[2021-11-30 08:11] VITALS: BP 167/66
[2021-11-30] MEDS: LIDOCAINE 5% (LIDODERM) PATCH TD SCH (08:12)
[2021-11-30] MEDS: OMEPRAZOLE SUSPENSION 20MG 10ML ORAL SYRINGE PO SCH (08:12)
[2021-11-30] MEDS: DOXYCYCLINE HYCLATE 100MG TABLET PO SCH (08:13)
[2021-11-30] MEDS: HEPARIN SOD (PORCINE) 5000UNITS/ML 1ML VIAL/SYRINGE SC SCH (08:13)
[2021-11-30] MEDS ORDERED: DOXY100T PO (08:13)
[2021-11-30] MEDS ORDERED: MIRA1POW3 PO (08:13)
[2021-11-30] MEDS: METOPROLOL SUCC (TopROL XL) 50MG **XL** TAB PO SCH (08:13)
[2021-11-30] MEDS: OMEGA-3 1000MG CAPSULE PO SCH (08:13)
[2021-11-30] MEDS: MIRALAX *UNIT DOSE* 17GM PACKET PO SCH (08:14)
[2021-11-30] MEDS: traMADol 50 MG TAB PO SCH (08:14)
[2021-11-30] MEDS: TOLTERODINE TARTRATE 2 MG LA CAP (DETROL LA) PO SCH (08:14)
[2021-11-30 10:09] VITALS: BP 174/70
[2021-11-30] MEDS ORDERED: amLODIPine 5 MG TAB PO ONE (10:10)
[2021-11-30] MEDS ORDERED: NORV5TAB PO (10:10)
== END 2021-11-30 11:06 | DRG 871 ==
LOC: EDBD 11:03 → M ED 11:03 → M ED INP 14:58 → ENRESERV 16:12 → M MSPAV 16:57
PROVIDERS: ADMIT Internal Medicine; ATTEND Internal Medicine
DX: A41.9 Sepsis, unspecified organism (principal); N17.0 Acute kidney failure with tubular necrosis; L03.116 Cellulitis of left lower limb; Z68.43 Body mass index [BMI] 50.0-59.9, adult; I10 Essential (primary) hypertension; E03.9 Hypothyroidism, unspecified; I73.9 Peripheral vascular disease, unspecified; M19.90 Unspecified osteoarthritis, unspecified site; E78.5 Hyperlipidemia, unspecified; Z90.79 Acquired absence of other genital organ(s); Z92.21 Personal history of antineoplastic chemotherapy; Z85.43 Personal history of malignant neoplasm of ovary; I89.0 Lymphedema, not elsewhere classified; N32.81 Overactive bladder; K21.9 Gastro-esophageal reflux disease without esophagitis; Z87.891 Personal history of nicotine dependence; G62.9 Polyneuropathy, unspecified; K59.09 Other constipation; Z20.822 Contact with and (suspected) exposure to COVID-19; Z79.890 Hormone replacement therapy; Z79.899 Other long term (current) drug therapy; Z88.0 Allergy status to penicillin; Z66 Do not resuscitate; R65.20 Severe sepsis without septic shock; E66.01 Morbid (severe) obesity due to excess calories; D64.9 Anemia, unspecified

== ENCOUNTER → 2021-12-01 | Outpatient (REF) ==
[~2021-12-01] MED LIST changes: +ACET-683 PO; -ALBUTEROL 90 MCG/ACT 8GM HFA INHALER INH PRN; -ALBUTEROL SULFATE 2.5 MG/0.5 ML INH NEB SOLN INH PRN; +BENG1CRE TOP; +D3 S20002 PO; +DOXY100T PO; +EMOL454O TP; -EPINEPHrine INJ 1 MG/ML 1ML AMP IM PRN; +FURO20TA2 PO; +HALO0.052 TOP; +LEVO25TA5 PO; +METO1TAB7 PO; +MILKSUS3 PO; +MIRA1POW3 PO; +NORV5TAB PO; -NS 1,000 ML IV SCH; +OMEG10002 PO; +OMEP1CAP71 PO; +POTA10TA67 PO; +ROSU20TA5 PO; +SENN-80 PO; +TOLT4CAP3 PO; +TRAM50TA2 PO; +VALA1TAB5 PO; -diphenhydrAMINE 50MG/ML VIAL (J1200) IV PRN; -methylPREDNISolone 125MG 2ML VIAL IV PRN
== END ==
PROVIDERS: ATTEND Internal Medicine
DX: E87.6 Hypokalemia (principal); Z53.8 Procedure and treatment not carried out for other reasons

== ENCOUNTER → 2021-12-25 | Outpatient (REF) ==
[2021-12-25 11:42] LABS: HEMATOCRIT 43.7 % (36.0-47.0); MEAN CORPUSCULAR HEMOGLOBIN 29.5 pg (27.0-33.0); MEAN CORPUSCULAR HGB CONC 29.7 g/dl (32.0-36.5); MEAN CORPUSCULAR VOLUME 99.1 fl (80.0-96.0); PLATELET COUNT, AUTOMATED 253 10^3/uL (150-450); RED BLOOD COUNT 4.41 10^6/uL (4.00-5.40); WHITE BLOOD COUNT 6.9 10^3/uL (4.0-10.0)
[2021-12-25 12:23] LABS: CALCIUM LEVEL 9.6 MG/DL (8.8-10.2); CREATININE FOR GFR 0.98 MG/DL (0.55-1.30)
== END ==
PROVIDERS: ATTEND Internal Medicine
DX: I10 Essential (primary) hypertension (principal)

== ENCOUNTER → 2022-01-08 | Outpatient (REF) ==
[2022-01-08 10:30] LABS: HEMATOCRIT 39.7 % (36.0-47.0); HEMOGLOBIN 12.2 g/dl (12.0-15.5); MEAN CORPUSCULAR HEMOGLOBIN 30.2 pg (27.0-33.0); MEAN CORPUSCULAR HGB CONC 30.7 g/dl (32.0-36.5); MEAN CORPUSCULAR VOLUME 98.3 fl (80.0-96.0); PLATELET COUNT, AUTOMATED 188 10^3/uL (150-450); RED BLOOD COUNT 4.04 10^6/uL (4.00-5.40); WHITE BLOOD COUNT 6.4 10^3/uL (4.0-10.0)
[2022-01-08 11:08] LABS: CHLORIDE LEVEL 103 MMOL/L (98-107); POTASSIUM SERUM 4.1 MMOL/L (3.5-5.1); SODIUM LEVEL 140 MMOL/L (136-145)
[2022-01-08 11:09] LABS: CARBON DIOXIDE LEVEL 27 MMOL/L (20-31)
[2022-01-08 11:13] LABS: BLOOD UREA NITROGEN 19 MG/DL (9-23)
[2022-01-08 11:14] LABS: CALCIUM LEVEL 9.2 MG/DL (8.3-10.6); GLUCOSE, FASTING 128 MG/DL (74-106)
[2022-01-08 11:16] LABS: CREATININE FOR GFR 0.78 MG/DL (0.55-1.30); GLOMERULAR FILTRATION RATE > 60.0 (>32)
== END ==
PROVIDERS: ATTEND Internal Medicine
DX: I10 Essential (primary) hypertension (principal)

== ENCOUNTER 2022-01-15 09:24 | Inpatient (IN) | payer MEDICARE, OTHER, MEDICAID ==
[~2022-01-15] VITALS: Ht 170.2 cm; Wt 161.7 kg
[2022-01-15 10:00] LABS: BASO % 0.6 % (0.0-1.0); EOS # 0.2 10^3/uL (0.0-0.5); EOS % 2.8 % (0.0-3.0); HEMATOCRIT 40.4 % (36.0-47.0); HEMOGLOBIN 12.6 g/dl (12.0-15.5); LYMPH % 18.5 % (24.0-44.0); MEAN CORPUSCULAR HEMOGLOBIN 29.4 pg (27.0-33.0); MEAN CORPUSCULAR HGB CONC 31.2 g/dl (32.0-36.5); MEAN CORPUSCULAR VOLUME 94.2 fl (80.0-96.0); MONO # 0.4 10^3/uL (0.0-0.8); MONO % 7.6 % (2.0-8.0); NEUTROPHILS # 3.8 10^3/uL (1.5-8.5); NEUTROPHILS % 69.9 % (36.0-66.0); PLATELET COUNT, AUTOMATED 148 10^3/uL (150-450); RED BLOOD COUNT 4.29 10^6/uL (4.00-5.40); WHITE BLOOD COUNT 5.4 10^3/uL (4.0-10.0)
[2022-01-15 10:28] LABS: MAGNESIUM LEVEL 1.9 MG/DL (1.8-2.4)
[2022-01-15 10:29] LABS: ALBUMIN 2.7 G/DL (3.2-5.2); ALKALINE PHOSPHATASE 87 U/L (46-116); ALT/SGPT 38 U/L (7.0-40); AST/SGOT 51 U/L (<34); BILIRUBIN,DIRECT 0.1 MG/DL (<0.4); BILIRUBIN,TOTAL 0.3 MG/DL (0.3-1.2); BLOOD UREA NITROGEN 20 MG/DL (9-23); CALCIUM LEVEL 9.1 MG/DL (8.3-10.6); CARBON DIOXIDE LEVEL 26 MMOL/L (20-31); CHLORIDE LEVEL 101 MMOL/L (98-107); CK-MB VALUE MASS < 1.0 NG/ML (<3.6); CREATININE FOR GFR 1.02 MG/DL (0.55-1.30); GLOMERULAR FILTRATION RATE 55.4 (>32); GLUCOSE, FASTING 118 MG/DL (74-106); POTASSIUM SERUM 4.2 MMOL/L (3.5-5.1); SODIUM LEVEL 135 MMOL/L (136-145); TOTAL PROTEIN 6.7 G/DL (5.7-8.2)
[2022-01-15] MEDS: METOPROLOL 5 MG/5 ML VIAL IV SCH ×3 (10:29→11:10)
[2022-01-15 10:31] LABS: THYROID STIMULATING HORMONE 2.148 uIU/ML (0.55-4.78); THYROXINE (T4) 9.3 UG/DL (4.5-10.9)
[2022-01-15 10:37] LABS: CPK CREATINE PHOSPHOKINASE 107 U/L (34-145); MB/CK RELATIVE INDEX 0.93 (< OR =4)
[2022-01-15 10:43] LABS: INR 1.01; PARTIAL THROMBOPLASTIN TIME 29.4 SECONDS (24.8-34.2); PROTHROMBIN TIME 13.5 SECONDS (12.5-14.5)
[2022-01-15 11:16] LABS: CK-MB VALUE MASS 1.1 NG/ML (<3.6)
[2022-01-15 11:17] LABS: MB/CK RELATIVE INDEX 1.27 (< OR =4)
[2022-01-15] MEDS ORDERED: METOPROLOL TART 50 MG TAB PO ONE (11:45)
[2022-01-15] MEDS ORDERED: NYST1POW9 TOP (12:13)
[2022-01-15] MEDS ORDERED: MIRA3350 PO (12:13)
[2022-01-15] MEDS ORDERED: LEVO50TA5 PO (12:13)
[2022-01-15] MEDS ORDERED: VITMTA PO (12:13)
[2022-01-15] MEDS ORDERED: TOLT2TAB12 PO (12:13)
[2022-01-15] MEDS ORDERED: ENEMENE PR (12:13)
[2022-01-15] MEDS ORDERED: DESI13CR2 TOP (12:13)
[2022-01-15] MEDS ORDERED: BISA10SU PR (12:13)
[2022-01-15] MEDS ORDERED: CLOB5CR TOP (12:13)
[2022-01-15] MEDS ORDERED: HOME MED LIST COMPLETE! XX SCH (12:15)
[2022-01-15] MEDS ORDERED: BISACODYL 10 MG SUPP PR PRN (12:40)
[2022-01-15] MEDS ORDERED: valACYclovir HCL 500 MG TAB PO PRN (12:40)
[2022-01-15 14:07] LABS: CK-MB VALUE MASS < 1.0 NG/ML (<3.6)
[2022-01-15 14:10] LABS: CPK CREATINE PHOSPHOKINASE 86 U/L (34-145); MB/CK RELATIVE INDEX 1.16 (< OR =4)
[2022-01-15] MEDS ORDERED: NYSTATIN 100,000 UNITS/GM TOPICAL PWD 15GM TOP PRN (19:50)
[2022-01-15] MEDS: CEPHALEXIN 500 MG CAP PO SCH ×3 (20:50→23:37)
[2022-01-15] MEDS: APIXABAN 5 MG TAB (ELIQUIS) PO SCH ×2 (20:51→22:07)
[2022-01-15] MEDS: ACETAMINOPHEN 500 MG TAB PO SCH ×2 (20:52→22:06)
[2022-01-15] MEDS: traMADol 50 MG TAB PO SCH ×2 (20:52→22:06)
[2022-01-15 21:40] VITALS: BP 133/85
[2022-01-15] MEDS: TOLTERODINE (DETROL) 2 MG TAB PO SCH (21:50)
[2022-01-15] MEDS: MIRALAX *UNIT DOSE* 17GM PACKET PO SCH (21:51)
[2022-01-15] MEDS: OMEPRAZOLE 20MG CAP PO SCH (21:51)
[2022-01-15] MEDS: FUROSEMIDE 20 MG TAB PO SCH (21:51)
[2022-01-15] MEDS: OMEGA-3 1000MG CAPSULE PO SCH (21:51)
[2022-01-15] MEDS: POTASSIUM CHLORIDE 10MEQ SR TABLET PO SCH (21:51)
[2022-01-15] MEDS: SENNA 8.6 MG TAB (SENOKOT) PO SCH (21:52)
[2022-01-15] MEDS: MULTIVITAMINS/MINERALS THERAP 1 TAB PO SCH (21:52)
[2022-01-15] MEDS: VITAMIN D 1,000 INTERNATIONAL UNITS TABLET PO SCH (21:52)
[2022-01-15] MEDS: METOPROLOL TART 25 MG TABLET PO SCH ×2 (21:57→23:36)
[2022-01-15] MEDS: ROSUVASTATIN 10 MG TAB (CRESTOR) PO SCH (22:05)
[2022-01-15] MEDS: CLOBETASOL PROPIONATE EMOLLIENT 0.05% CR 60 GM TOP SCH (23:34)
[2022-01-15 23:37] VITALS: BP 147/94
[2022-01-15] MEDS ORDERED: guaiFENesin 200 MG TAB PO PRN (23:55)
[2022-01-16 04:06] VITALS: BP 134/65
[2022-01-16 05:32] LABS: HEMATOCRIT 39.4 % (36.0-47.0); HEMOGLOBIN 12.3 g/dl (12.0-15.5); MEAN CORPUSCULAR HEMOGLOBIN 29.6 pg (27.0-33.0); MEAN CORPUSCULAR HGB CONC 31.2 g/dl (32.0-36.5); MEAN CORPUSCULAR VOLUME 94.9 fl (80.0-96.0); PLATELET COUNT, AUTOMATED 159 10^3/uL (150-450); RED BLOOD COUNT 4.15 10^6/uL (4.00-5.40); WHITE BLOOD COUNT 5.9 10^3/uL (4.0-10.0)
[2022-01-16 05:56] LABS: MAGNESIUM LEVEL 1.9 MG/DL (1.8-2.4)
[2022-01-16 05:58] LABS: CALCIUM LEVEL 9.1 MG/DL (8.3-10.6); CREATININE FOR GFR 1.01 MG/DL (0.55-1.30); PHOSPHORUS LEVEL 3.6 MG/DL (2.4-5.1); POTASSIUM SERUM 3.9 MMOL/L (3.5-5.1)
[2022-01-16] MEDS: LEVOTHYROXINE 50MCG TABLET (0.05MG) PO SCH (06:23)
[2022-01-16] MEDS: METOPROLOL TART 25 MG TABLET PO SCH (06:23)
[2022-01-16] MEDS: CEPHALEXIN 500 MG CAP PO SCH ×3 (06:23→17:55)
[2022-01-16 08:00] VITALS: BP 135/65
[2022-01-16] MEDS ORDERED: atenoloL 50 MG TAB PO ONE (08:05)
[2022-01-16] MEDS ORDERED: ELIQ5TAB PO (08:25)
[2022-01-16] MEDS ORDERED: ATEN50TA2 PO ×2 (08:25→08:27)
[2022-01-16] MEDS ORDERED: CEPH500C PO (08:27)
[2022-01-16] MEDS ORDERED: MUCI600T31 PO (08:27)
[2022-01-16] MEDS ORDERED: BACI1CAP PO (08:27)
[2022-01-16] MEDS: MULTIVITAMINS/MINERALS THERAP 1 TAB PO SCH (08:58)
[2022-01-16] MEDS: OMEGA-3 1000MG CAPSULE PO SCH (08:58)
[2022-01-16] MEDS: ACETAMINOPHEN 500 MG TAB PO SCH ×3 (08:59→20:27)
[2022-01-16] MEDS: FUROSEMIDE 20 MG TAB PO SCH (08:59)
[2022-01-16] MEDS: TOLTERODINE (DETROL) 2 MG TAB PO SCH (08:59)
[2022-01-16] MEDS: VITAMIN D 1,000 INTERNATIONAL UNITS TABLET PO SCH (08:59)
[2022-01-16] MEDS: APIXABAN 5 MG TAB (ELIQUIS) PO SCH ×2 (09:00→20:28)
[2022-01-16] MEDS: traMADol 50 MG TAB PO SCH ×4 (09:00→20:28)
[2022-01-16] MEDS: MIRALAX *UNIT DOSE* 17GM PACKET PO SCH (09:00)
[2022-01-16] MEDS: SENNA 8.6 MG TAB (SENOKOT) PO SCH (09:00)
[2022-01-16] MEDS: guaiFENesin ER 600 MG TAB PO SCH ×2 (09:01→20:29)
[2022-01-16] MEDS: OMEPRAZOLE 20MG CAP PO SCH (09:01)
[2022-01-16] MEDS: POTASSIUM CHLORIDE 10MEQ SR TABLET PO SCH (09:02)
[2022-01-16] MEDS: CLOBETASOL PROPIONATE EMOLLIENT 0.05% CR 60 GM TOP SCH ×2 (09:09→20:29)
[2022-01-16] MEDS: METOPROLOL 5 MG/5 ML VIAL IV SCH ×3 (09:35→09:45)
[2022-01-16] MEDS ORDERED: MIDODRINE 5 MG TAB PO ONE (09:35)
[2022-01-16 16:13] VITALS: BP 142/72
[2022-01-16] MEDS ORDERED: BENZONATATE 100MG CAPSULE PO ONE (16:30)
[2022-01-16 20:00] VITALS: BP 113/61
[2022-01-16] MEDS: BENZONATATE 100MG CAPSULE PO SCH (20:28)
[2022-01-16] MEDS: ROSUVASTATIN 10 MG TAB (CRESTOR) PO SCH (20:28)
[2022-01-16] MEDS: atenoloL 50 MG TAB PO SCH (20:30)
[2022-01-17] VITALS: BP 129/64
[2022-01-17] MEDS: CEPHALEXIN 500 MG CAP PO SCH ×2 (00:21→05:24)
[2022-01-17 04:00] VITALS: BP 139/66
[2022-01-17] MEDS: LEVOTHYROXINE 50MCG TABLET (0.05MG) PO SCH (05:24)
[2022-01-17 07:32] VITALS: BP 148/70
[2022-01-17] MEDS: OMEPRAZOLE 20MG CAP PO SCH (08:52)
[2022-01-17] MEDS: MIRALAX *UNIT DOSE* 17GM PACKET PO SCH (08:52)
[2022-01-17] MEDS: VITAMIN D 1,000 INTERNATIONAL UNITS TABLET PO SCH (08:52)
[2022-01-17 08:53] VITALS: BP 148/70
[2022-01-17] MEDS: APIXABAN 5 MG TAB (ELIQUIS) PO SCH (08:53)
[2022-01-17] MEDS: FUROSEMIDE 20 MG TAB PO SCH (08:53)
[2022-01-17] MEDS: atenoloL 50 MG TAB PO SCH (08:53)
[2022-01-17] MEDS: POTASSIUM CHLORIDE 10MEQ SR TABLET PO SCH (08:53)
[2022-01-17] MEDS: BENZONATATE 100MG CAPSULE PO SCH (08:54)
[2022-01-17] MEDS: MULTIVITAMINS/MINERALS THERAP 1 TAB PO SCH (08:54)
[2022-01-17] MEDS: SENNA 8.6 MG TAB (SENOKOT) PO SCH (08:54)
[2022-01-17] MEDS: ACETAMINOPHEN 500 MG TAB PO SCH (08:55)
[2022-01-17] MEDS: traMADol 50 MG TAB PO SCH (08:55)
[2022-01-17] MEDS: OMEGA-3 1000MG CAPSULE PO SCH (08:55)
[2022-01-17] MEDS: TOLTERODINE (DETROL) 2 MG TAB PO SCH (08:56)
[2022-01-17] MEDS: CLOBETASOL PROPIONATE EMOLLIENT 0.05% CR 60 GM TOP SCH (08:56)
[2022-01-17] MEDS: guaiFENesin ER 600 MG TAB PO SCH (08:58)
== END 2022-01-17 11:30 | DRG 309 ==
LOC: M ED 09:24 → EDBD 09:24 → M ED INP 12:18 → M PCU 21:34
PROVIDERS: ADMIT Internal Medicine; ATTEND General Practice
DX: I48.91 Unspecified atrial fibrillation (principal); L03.116 Cellulitis of left lower limb; Z68.43 Body mass index [BMI] 50.0-59.9, adult; I10 Essential (primary) hypertension; E03.9 Hypothyroidism, unspecified; E78.5 Hyperlipidemia, unspecified; K21.9 Gastro-esophageal reflux disease without esophagitis; E66.01 Morbid (severe) obesity due to excess calories; N32.81 Overactive bladder; K59.09 Other constipation; I89.0 Lymphedema, not elsewhere classified; J32.9 Chronic sinusitis, unspecified; I73.9 Peripheral vascular disease, unspecified; M17.0 Bilateral primary osteoarthritis of knee; Z66 Do not resuscitate; J20.9 Acute bronchitis, unspecified; R53.81 Other malaise; M54.9 Dorsalgia, unspecified; G89.29 Other chronic pain; M19.071 Primary osteoarthritis, right ankle and foot; M19.072 Primary osteoarthritis, left ankle and foot; Z85.43 Personal history of malignant neoplasm of ovary; Z90.710 Acquired absence of both cervix and uterus; Z92.21 Personal history of antineoplastic chemotherapy; Z87.891 Personal history of nicotine dependence; Z79.899 Other long term (current) drug therapy; Z79.890 Hormone replacement therapy; Z88.0 Allergy status to penicillin

== ENCOUNTER → 2022-01-22 | Outpatient (REF) ==
[~2022-01-22] MED LIST changes: +ATEN50TA2 PO; +BACI1CAP PO; +BISA10SU PR; +CEPH500C PO; +CLOB5CR TOP; +DESI13CR2 TOP; +ELIQ5TAB PO; +ENEMENE PR; +LEVO50TA5 PO; +MIRA3350 PO; +MUCI600T31 PO; +NYST1POW9 TOP; +TOLT2TAB12 PO; +VITMTA PO
[2022-01-22 10:41] LABS: HEMATOCRIT 39.9 % (36.0-47.0); HEMOGLOBIN 12.6 g/dl (12.0-15.5); MEAN CORPUSCULAR HEMOGLOBIN 30.5 pg (27.0-33.0); MEAN CORPUSCULAR HGB CONC 31.6 g/dl (32.0-36.5); MEAN CORPUSCULAR VOLUME 96.6 fl (80.0-96.0); PLATELET COUNT, AUTOMATED 323 10^3/uL (150-450); RED BLOOD COUNT 4.13 10^6/uL (4.00-5.40); WHITE BLOOD COUNT 7.6 10^3/uL (4.0-10.0)
[2022-01-22 11:10] LABS: BLOOD UREA NITROGEN 22 MG/DL (9-23); CALCIUM LEVEL 9.1 MG/DL (8.3-10.6); CARBON DIOXIDE LEVEL 28 MMOL/L (20-31); CHLORIDE LEVEL 105 MMOL/L (98-107); CREATININE FOR GFR 0.85 MG/DL (0.55-1.30); GLOMERULAR FILTRATION RATE > 60.0 (>32); GLUCOSE, FASTING 152 MG/DL (74-106); POTASSIUM SERUM 4.1 MMOL/L (3.5-5.1); SODIUM LEVEL 141 MMOL/L (136-145)
== END ==
PROVIDERS: ATTEND Internal Medicine
DX: I10 Essential (primary) hypertension (principal)

== ENCOUNTER → 2022-01-29 | Outpatient (REF) ==
[2022-01-29 11:15] LABS: HEMATOCRIT 41.1 % (36.0-47.0); HEMOGLOBIN 12.4 g/dl (12.0-15.5); MEAN CORPUSCULAR HEMOGLOBIN 29.3 pg (27.0-33.0); MEAN CORPUSCULAR HGB CONC 30.2 g/dl (32.0-36.5); MEAN CORPUSCULAR VOLUME 97.2 fl (80.0-96.0); PLATELET COUNT, AUTOMATED 277 10^3/uL (150-450); RED BLOOD COUNT 4.23 10^6/uL (4.00-5.40); WHITE BLOOD COUNT 6.4 10^3/uL (4.0-10.0)
[2022-01-29 11:39] LABS: BLOOD UREA NITROGEN 24 MG/DL (9-23); CALCIUM LEVEL 9.3 MG/DL (8.3-10.6); CARBON DIOXIDE LEVEL 28 MMOL/L (20-31); CHLORIDE LEVEL 103 MMOL/L (98-107); CREATININE FOR GFR 0.81 MG/DL (0.55-1.30); GLOMERULAR FILTRATION RATE > 60.0 (>32); GLUCOSE, FASTING 129 MG/DL (74-106); POTASSIUM SERUM 4.1 MMOL/L (3.5-5.1); SODIUM LEVEL 140 MMOL/L (136-145)
== END ==
PROVIDERS: ATTEND Internal Medicine
DX: I51.9 Heart disease, unspecified (principal)

== ENCOUNTER → 2022-02-06 | Outpatient (REF) | payer MEDICARE, OTHER, MEDICAID | PROVIDERS: ATTEND Physician Assistant | DX: R05.9 Cough, unspecified (principal) ==

== ENCOUNTER → 2022-02-26 | Outpatient (REF) | payer MEDICARE, OTHER, MEDICAID ==
[2022-02-26 10:33] LABS: HEMATOCRIT 41.6 % (36.0-47.0); HEMOGLOBIN 12.6 g/dl (12.0-15.5); MEAN CORPUSCULAR HGB CONC 30.3 g/dl (32.0-36.5); PLATELET COUNT, AUTOMATED 223 10^3/uL (150-450)
[2022-02-26 11:14] LABS: BLOOD UREA NITROGEN 20 MG/DL (9-23); CALCIUM LEVEL 9.8 MG/DL (8.3-10.6); CARBON DIOXIDE LEVEL 30 MMOL/L (20-31); CHLORIDE LEVEL 103 MMOL/L (98-107); CREATININE FOR GFR 0.88 MG/DL (0.55-1.30); GLOMERULAR FILTRATION RATE > 60.0 (>32); GLUCOSE, FASTING 102 MG/DL (74-106); POTASSIUM SERUM 3.8 MMOL/L (3.5-5.1); SODIUM LEVEL 140 MMOL/L (136-145)
== END ==
PROVIDERS: ATTEND Internal Medicine
DX: I50.9 Heart failure, unspecified (principal)

== ENCOUNTER → 2022-04-02 | Outpatient (REF) | payer MEDICARE, OTHER, MEDICAID ==
[2022-04-02 09:56] LABS: HEMATOCRIT 42.4 % (36.0-47.0); HEMOGLOBIN 12.9 g/dl (12.0-15.5); MEAN CORPUSCULAR HEMOGLOBIN 30.6 pg (27.0-33.0); MEAN CORPUSCULAR HGB CONC 30.4 g/dl (32.0-36.5); MEAN CORPUSCULAR VOLUME 100.7 fl (80.0-96.0); PLATELET COUNT, AUTOMATED 183 10^3/uL (150-450); RED BLOOD COUNT 4.21 10^6/uL (4.00-5.40); WHITE BLOOD COUNT 4.3 10^3/uL (4.0-10.0)
[2022-04-02 10:34] LABS: BLOOD UREA NITROGEN 20 MG/DL (9-23); CALCIUM LEVEL 9.6 MG/DL (8.3-10.6); CARBON DIOXIDE LEVEL 29 MMOL/L (20-31); CHLORIDE LEVEL 105 MMOL/L (98-107); CREATININE FOR GFR 0.85 MG/DL (0.55-1.30); GLOMERULAR FILTRATION RATE > 60.0 (>32); GLUCOSE, FASTING 86 MG/DL (74-106); POTASSIUM SERUM 3.9 MMOL/L (3.5-5.1); SODIUM LEVEL 140 MMOL/L (136-145)
== END ==
PROVIDERS: ATTEND Internal Medicine
DX: I50.9 Heart failure, unspecified (principal)

== ENCOUNTER → 2022-04-30 | Outpatient (REF) | payer MEDICARE, OTHER, MEDICAID ==
[2022-04-30 13:09] LABS: HEMATOCRIT 41.8 % (36.0-47.0); HEMOGLOBIN 12.9 g/dl (12.0-15.5); MEAN CORPUSCULAR HEMOGLOBIN 30.6 pg (27.0-33.0); MEAN CORPUSCULAR HGB CONC 30.9 g/dl (32.0-36.5); MEAN CORPUSCULAR VOLUME 99.3 fl (80.0-96.0); PLATELET COUNT, AUTOMATED 182 10^3/uL (150-450); RED BLOOD COUNT 4.21 10^6/uL (4.00-5.40); WHITE BLOOD COUNT 4.5 10^3/uL (4.0-10.0)
[2022-04-30 13:35] LABS: BLOOD UREA NITROGEN 22 MG/DL (9-23); CALCIUM LEVEL 8.5 MG/DL (8.3-10.6); CARBON DIOXIDE LEVEL 30 MMOL/L (20-31); CHLORIDE LEVEL 105 MMOL/L (98-107); CREATININE FOR GFR 0.86 MG/DL (0.55-1.30); GLOMERULAR FILTRATION RATE > 60.0 (>32); GLUCOSE, FASTING 97 MG/DL (74-106); POTASSIUM SERUM 3.8 MMOL/L (3.5-5.1); SODIUM LEVEL 141 MMOL/L (136-145)
== END ==
PROVIDERS: ATTEND Internal Medicine
DX: I51.9 Heart disease, unspecified (principal)

== ENCOUNTER → 2022-05-28 | Outpatient (REF) | payer MEDICARE, MEDICAID ==
[~2022-05-28] MED LIST changes: +SENN-186 PO; -SENN-80 PO
[2022-05-28 11:53] LABS: HEMATOCRIT 41.1 % (36.0-47.0); HEMOGLOBIN 12.8 g/dl (12.0-15.5); MEAN CORPUSCULAR HEMOGLOBIN 30.8 pg (27.0-33.0); MEAN CORPUSCULAR HGB CONC 31.1 g/dl (32.0-36.5); MEAN CORPUSCULAR VOLUME 98.8 fl (80.0-96.0); PLATELET COUNT, AUTOMATED 160 10^3/uL (150-450); RED BLOOD COUNT 4.16 10^6/uL (4.00-5.40); WHITE BLOOD COUNT 4.1 10^3/uL (4.0-10.0)
[2022-05-28 12:12] LABS: BLOOD UREA NITROGEN 20 MG/DL (9-23); CALCIUM LEVEL 9.1 MG/DL (8.3-10.6); CARBON DIOXIDE LEVEL 31 MMOL/L (20-31); CHLORIDE LEVEL 104 MMOL/L (98-107); CREATININE FOR GFR 0.84 MG/DL (0.55-1.30); GLOMERULAR FILTRATION RATE > 60.0 (>32); GLUCOSE, FASTING 91 MG/DL (74-106); SODIUM LEVEL 142 MMOL/L (136-145)
== END ==
PROVIDERS: ATTEND Internal Medicine
DX: I50.9 Heart failure, unspecified (principal)

== ENCOUNTER → 2022-06-27 | Outpatient (REF) | payer MEDICARE, MEDICAID ==
[2022-06-27 11:01] LABS: HEMOGLOBIN 12.7 g/dl (12.0-15.5); MEAN CORPUSCULAR HEMOGLOBIN 30.8 pg (27.0-33.0); MEAN CORPUSCULAR VOLUME 99.3 fl (80.0-96.0); PLATELET COUNT, AUTOMATED 165 10^3/uL (150-450); RED BLOOD COUNT 4.13 10^6/uL (4.00-5.40); WHITE BLOOD COUNT 4.6 10^3/uL (4.0-10.0)
[2022-06-27 11:35] LABS: BLOOD UREA NITROGEN 22 MG/DL (9-23); CALCIUM LEVEL 9.1 MG/DL (8.3-10.6); CARBON DIOXIDE LEVEL 31 MMOL/L (20-31); CHLORIDE LEVEL 105 MMOL/L (98-107); CREATININE FOR GFR 0.89 MG/DL (0.55-1.30); GLOMERULAR FILTRATION RATE > 60.0 (>32); GLUCOSE, FASTING 111 MG/DL (74-106); POTASSIUM SERUM 3.8 MMOL/L (3.5-5.1); SODIUM LEVEL 140 MMOL/L (136-145)
== END ==
PROVIDERS: ATTEND Internal Medicine
DX: I50.9 Heart failure, unspecified (principal)

== ENCOUNTER → 2022-07-04 | Outpatient (REF) | payer MEDICARE, MEDICAID ==
[2022-07-04 09:16] LABS: CALCIUM LEVEL 8.9 MG/DL (8.3-10.6); CREATININE FOR GFR 0.99 MG/DL (0.55-1.30); GLOMERULAR FILTRATION RATE 57.2 (>32)
== END ==
PROVIDERS: ATTEND Internal Medicine
DX: I50.9 Heart failure, unspecified (principal)

== ENCOUNTER → 2022-07-25 | Outpatient (REF) | payer MEDICARE, MEDICAID ==
[~2022-07-25] MED LIST changes: -ROSU20TA5 PO; +ROSU20TA61 PO
[2022-07-25 11:45] LABS: HEMATOCRIT 43.1 % (36.0-47.0); HEMOGLOBIN 13.5 g/dl (12.0-15.5); MEAN CORPUSCULAR HEMOGLOBIN 31.4 pg (27.0-33.0); MEAN CORPUSCULAR HGB CONC 31.3 g/dl (32.0-36.5); MEAN CORPUSCULAR VOLUME 100.2 fl (80.0-96.0); PLATELET COUNT, AUTOMATED 179 10^3/uL (150-450); WHITE BLOOD COUNT 5.2 10^3/uL (4.0-10.0)
[2022-07-25 12:09] LABS: CALCIUM LEVEL 9.1 MG/DL (8.3-10.6); CREATININE FOR GFR 0.95 MG/DL (0.55-1.30); POTASSIUM SERUM 3.5 MMOL/L (3.5-5.1)
== END ==
PROVIDERS: ATTEND Internal Medicine
DX: I50.9 Heart failure, unspecified (principal)

== ENCOUNTER → 2022-08-22 | Outpatient (REF) | payer MEDICARE, MEDICAID ==
[2022-08-22 08:50] LABS: HEMATOCRIT 39.9 % (36.0-47.0); HEMOGLOBIN 12.5 g/dl (12.0-15.5); MEAN CORPUSCULAR HGB CONC 31.3 g/dl (32.0-36.5); PLATELET COUNT, AUTOMATED 159 10^3/uL (150-450); RED BLOOD COUNT 4.03 10^6/uL (4.00-5.40); WHITE BLOOD COUNT 4.1 10^3/uL (4.0-10.0)
[2022-08-22 09:15] LABS: BLOOD UREA NITROGEN 25 MG/DL (9-23); CALCIUM LEVEL 10.1 MG/DL (8.3-10.6); CARBON DIOXIDE LEVEL 31 MMOL/L (20-31); CHLORIDE LEVEL 104 MMOL/L (98-107); CREATININE FOR GFR 0.87 MG/DL (0.55-1.30); GLOMERULAR FILTRATION RATE > 60.0 (>32); GLUCOSE, FASTING 87 MG/DL (74-106); POTASSIUM SERUM 3.9 MMOL/L (3.5-5.1); SODIUM LEVEL 141 MMOL/L (136-145)
== END ==
PROVIDERS: ATTEND Internal Medicine
DX: I50.9 Heart failure, unspecified (principal)

== ENCOUNTER → 2022-09-19 | Outpatient (REF) | payer MEDICARE, MEDICAID ==
[2022-09-19 10:23] LABS: HEMATOCRIT 42.1 % (36.0-47.0); HEMOGLOBIN 13.2 g/dl (12.0-15.5); MEAN CORPUSCULAR HEMOGLOBIN 31.3 pg (27.0-33.0); MEAN CORPUSCULAR HGB CONC 31.4 g/dl (32.0-36.5); MEAN CORPUSCULAR VOLUME 99.8 fl (80.0-96.0); PLATELET COUNT, AUTOMATED 174 10^3/uL (150-450); RED BLOOD COUNT 4.22 10^6/uL (4.00-5.40); WHITE BLOOD COUNT 4.2 10^3/uL (4.0-10.0)
[2022-09-19 10:43] LABS: BLOOD UREA NITROGEN 24 MG/DL (9-23); CALCIUM LEVEL 9.5 MG/DL (8.3-10.6); CARBON DIOXIDE LEVEL 29 MMOL/L (20-31); CHLORIDE LEVEL 104 MMOL/L (98-107); CREATININE FOR GFR 0.81 MG/DL (0.55-1.30); GLOMERULAR FILTRATION RATE > 60.0 (>32); GLUCOSE, FASTING 111 MG/DL (74-106); POTASSIUM SERUM 4.1 MMOL/L (3.5-5.1); SODIUM LEVEL 142 MMOL/L (136-145)
== END ==
PROVIDERS: ATTEND Internal Medicine
DX: I50.9 Heart failure, unspecified (principal)

== ENCOUNTER → 2022-11-26 | Outpatient (REF) | payer MEDICARE, MEDICAID ==
[2022-11-26 11:27] LABS: HEMOGLOBIN 13.2 g/dl (12.0-15.5); MEAN CORPUSCULAR HGB CONC 31.4 g/dl (32.0-36.5); MEAN CORPUSCULAR VOLUME 101.7 fl (80.0-96.0); PLATELET COUNT, AUTOMATED 182 10^3/uL (150-450); RED BLOOD COUNT 4.13 10^6/uL (4.00-5.40); WHITE BLOOD COUNT 4.4 10^3/uL (4.0-10.0)
[2022-11-26 11:51] LABS: BLOOD UREA NITROGEN 26 MG/DL (9-23); CARBON DIOXIDE LEVEL 31 MMOL/L (20-31); CHLORIDE LEVEL 109 MMOL/L (98-107); CREATININE FOR GFR 0.85 MG/DL (0.55-1.30); GLOMERULAR FILTRATION RATE > 60.0 (>32); GLUCOSE, FASTING 95 MG/DL (74-106); POTASSIUM SERUM 4.2 MMOL/L (3.5-5.1); SODIUM LEVEL 145 MMOL/L (136-145)
== END ==
PROVIDERS: ATTEND Internal Medicine
DX: Z79.899 Other long term (current) drug therapy (principal)

== ENCOUNTER → 2022-12-26 | Outpatient (REF) | payer MEDICARE, MEDICAID ==
[2022-12-26 11:39] LABS: HEMATOCRIT 44.1 % (36.0-47.0); HEMOGLOBIN 13.5 g/dl (12.0-15.5); MEAN CORPUSCULAR HEMOGLOBIN 31.4 pg (27.0-33.0); MEAN CORPUSCULAR HGB CONC 30.6 g/dl (32.0-36.5); MEAN CORPUSCULAR VOLUME 102.6 fl (80.0-96.0); PLATELET COUNT, AUTOMATED 192 10^3/uL (150-450); WHITE BLOOD COUNT 4.4 10^3/uL (4.0-10.0)
[2022-12-26 12:13] LABS: BLOOD UREA NITROGEN 25 MG/DL (9-23); CALCIUM LEVEL 9.4 MG/DL (8.3-10.6); CARBON DIOXIDE LEVEL 31 MMOL/L (20-31); CHLORIDE LEVEL 106 MMOL/L (98-107); CREATININE FOR GFR 0.78 MG/DL (0.55-1.30); GLOMERULAR FILTRATION RATE > 60.0 (>32); GLUCOSE, FASTING 95 MG/DL (74-106); POTASSIUM SERUM 4.1 MMOL/L (3.5-5.1); SODIUM LEVEL 144 MMOL/L (136-145)
== END ==
PROVIDERS: ATTEND Internal Medicine
DX: I50.9 Heart failure, unspecified (principal)

== ENCOUNTER → 2023-01-30 | Outpatient (REF) | payer MEDICARE, MEDICAID ==
[2023-01-30 10:51] LABS: HEMATOCRIT 40.5 % (36.0-47.0); HEMOGLOBIN 12.8 g/dl (12.0-15.5); MEAN CORPUSCULAR HEMOGLOBIN 32.6 pg (27.0-33.0); MEAN CORPUSCULAR HGB CONC 31.6 g/dl (32.0-36.5); MEAN CORPUSCULAR VOLUME 103.1 fl (80.0-96.0); PLATELET COUNT, AUTOMATED 176 10^3/uL (150-450); RED BLOOD COUNT 3.93 10^6/uL (4.00-5.40); WHITE BLOOD COUNT 4.7 10^3/uL (4.0-10.0)
[2023-01-30 11:15] LABS: BLOOD UREA NITROGEN 27 MG/DL (9-23); CALCIUM LEVEL 9.4 MG/DL (8.3-10.6); CARBON DIOXIDE LEVEL 30 MMOL/L (20-31); CHLORIDE LEVEL 106 MMOL/L (98-107); CREATININE FOR GFR 0.83 MG/DL (0.55-1.30); GLOMERULAR FILTRATION RATE > 60.0 (>32); GLUCOSE, FASTING 98 MG/DL (74-106); SODIUM LEVEL 142 MMOL/L (136-145)
== END ==
PROVIDERS: ATTEND Internal Medicine
DX: N18.9 Chronic kidney disease, unspecified (principal)

== ENCOUNTER → 2023-02-27 | Outpatient (REF) | payer MEDICARE, MEDICAID ==
[2023-02-27 11:22] LABS: HEMATOCRIT 42.2 % (36.0-47.0); HEMOGLOBIN 13.3 g/dl (12.0-15.5); MEAN CORPUSCULAR HGB CONC 31.5 g/dl (32.0-36.5); MEAN CORPUSCULAR VOLUME 101.7 fl (80.0-96.0); PLATELET COUNT, AUTOMATED 166 10^3/uL (150-450); RED BLOOD COUNT 4.15 10^6/uL (4.00-5.40); WHITE BLOOD COUNT 4.3 10^3/uL (4.0-10.0)
[2023-02-27 11:40] LABS: BLOOD UREA NITROGEN 19 MG/DL (9-23); CALCIUM LEVEL 9.5 MG/DL (8.3-10.6); CARBON DIOXIDE LEVEL 31 MMOL/L (20-31); CHLORIDE LEVEL 103 MMOL/L (98-107); CREATININE FOR GFR 0.86 MG/DL (0.55-1.30); GLOMERULAR FILTRATION RATE > 60.0 (>32); GLUCOSE, FASTING 104 MG/DL (74-106); POTASSIUM SERUM 3.7 MMOL/L (3.5-5.1); SODIUM LEVEL 139 MMOL/L (136-145)
== END ==
PROVIDERS: ATTEND Internal Medicine
DX: I50.9 Heart failure, unspecified (principal)

== ENCOUNTER → 2023-03-27 | Outpatient (REF) | payer MEDICARE, MEDICAID ==
[~2023-03-27] MED LIST changes: -MIRA1POW3 PO; +MIRA33506 PO
[2023-03-27 10:39] LABS: HEMATOCRIT 42.6 % (36.0-47.0); HEMOGLOBIN 13.3 g/dl (12.0-15.5); MEAN CORPUSCULAR HEMOGLOBIN 32.1 pg (27.0-33.0); MEAN CORPUSCULAR HGB CONC 31.2 g/dl (32.0-36.5); MEAN CORPUSCULAR VOLUME 102.9 fl (80.0-96.0); PLATELET COUNT, AUTOMATED 184 10^3/uL (150-450); RED BLOOD COUNT 4.14 10^6/uL (4.00-5.40); WHITE BLOOD COUNT 5.1 10^3/uL (4.0-10.0)
[2023-03-27 11:11] LABS: BLOOD UREA NITROGEN 21 MG/DL (9-23); CARBON DIOXIDE LEVEL 32 MMOL/L (20-31); CHLORIDE LEVEL 108 MMOL/L (98-107); CREATININE FOR GFR 0.84 MG/DL (0.55-1.30); GLOMERULAR FILTRATION RATE > 60.0 (>32); GLUCOSE, FASTING 94 MG/DL (74-106); POTASSIUM SERUM 4.1 MMOL/L (3.5-5.1); SODIUM LEVEL 141 MMOL/L (136-145)
== END ==
PROVIDERS: ATTEND Internal Medicine
DX: I50.9 Heart failure, unspecified (principal)

== ENCOUNTER → 2023-04-27 | Outpatient (REF) | payer MEDICARE, MEDICAID | PROVIDERS: ATTEND Internal Medicine | DX: I50.9 Heart failure, unspecified (principal); Z53.8 Procedure and treatment not carried out for other reasons ==

== ENCOUNTER → 2023-05-22 | Outpatient (REF) | payer MEDICARE, MEDICAID ==
[2023-05-22 10:35] LABS: HEMATOCRIT 42.9 % (36.0-47.0); HEMOGLOBIN 13.5 g/dl (12.0-15.5); MEAN CORPUSCULAR HGB CONC 31.5 g/dl (32.0-36.5); MEAN CORPUSCULAR VOLUME 101.7 fl (80.0-96.0); PLATELET COUNT, AUTOMATED 166 10^3/uL (150-450); RED BLOOD COUNT 4.22 10^6/uL (4.00-5.40); WHITE BLOOD COUNT 4.8 10^3/uL (4.0-10.0)
[2023-05-22 10:59] LABS: BLOOD UREA NITROGEN 22 MG/DL (9-23); CALCIUM LEVEL 8.9 MG/DL (8.3-10.6); CARBON DIOXIDE LEVEL 31 MMOL/L (20-31); CHLORIDE LEVEL 104 MMOL/L (98-107); CREATININE FOR GFR 0.88 MG/DL (0.55-1.30); GLOMERULAR FILTRATION RATE > 60.0 (>32); GLUCOSE, FASTING 105 MG/DL (74-106); POTASSIUM SERUM 4.2 MMOL/L (3.5-5.1); SODIUM LEVEL 140 MMOL/L (136-145)
== END ==
PROVIDERS: ATTEND Internal Medicine
DX: I50.9 Heart failure, unspecified (principal)

== ENCOUNTER → 2023-07-03 | Outpatient (REF) | payer MEDICARE, MEDICAID ==
[2023-07-03 12:41] LABS: HEMATOCRIT 43.5 % (36.0-47.0); HEMOGLOBIN 13.5 g/dl (12.0-15.5); MEAN CORPUSCULAR HEMOGLOBIN 32.1 pg (27.0-33.0); MEAN CORPUSCULAR VOLUME 103.6 fl (80.0-96.0); PLATELET COUNT, AUTOMATED 172 10^3/uL (150-450)
[2023-07-03 13:09] LABS: BLOOD UREA NITROGEN 24 MG/DL (9-23); CALCIUM LEVEL 9.2 MG/DL (8.3-10.6); CARBON DIOXIDE LEVEL 32 MMOL/L (20-31); CHLORIDE LEVEL 104 MMOL/L (98-107); CREATININE FOR GFR 0.88 MG/DL (0.55-1.30); GLOMERULAR FILTRATION RATE > 60.0 (>32); GLUCOSE, FASTING 103 MG/DL (74-106); POTASSIUM SERUM 4.2 MMOL/L (3.5-5.1); SODIUM LEVEL 140 MMOL/L (136-145)
[2023-07-03 15:26] LABS: THYROID STIMULATING HORMONE 2.878 uIU/ML (0.55-4.78)
== END ==
PROVIDERS: ATTEND Internal Medicine
DX: I50.9 Heart failure, unspecified (principal)

== ENCOUNTER → 2023-07-31 | Outpatient (REF) | payer MEDICARE, MEDICAID ==
[2023-07-31 10:07] LABS: HEMATOCRIT 43.5 % (36.0-47.0); HEMOGLOBIN 13.7 g/dl (12.0-15.5); MEAN CORPUSCULAR HGB CONC 31.5 g/dl (32.0-36.5); MEAN CORPUSCULAR VOLUME 101.6 fl (80.0-96.0); PLATELET COUNT, AUTOMATED 171 10^3/uL (150-450); RED BLOOD COUNT 4.28 10^6/uL (4.00-5.40); WHITE BLOOD COUNT 4.2 10^3/uL (4.0-10.0)
[2023-07-31 10:34] LABS: BLOOD UREA NITROGEN 24 MG/DL (9-23); CALCIUM LEVEL 9.8 MG/DL (8.3-10.6); CARBON DIOXIDE LEVEL 31 MMOL/L (20-31); CHLORIDE LEVEL 104 MMOL/L (98-107); CREATININE FOR GFR 0.83 MG/DL (0.55-1.30); GLOMERULAR FILTRATION RATE > 60.0 (>32); GLUCOSE, FASTING 119 MG/DL (74-106); POTASSIUM SERUM 4.1 MMOL/L (3.5-5.1); SODIUM LEVEL 139 MMOL/L (136-145)
== END ==
PROVIDERS: ATTEND Internal Medicine
DX: E55.9 Vitamin D deficiency, unspecified (principal)

== ENCOUNTER → 2023-09-02 | Outpatient (REF) | payer MEDICARE, MEDICAID ==
[2023-09-02 11:52] LABS: HEMATOCRIT 45.3 % (36.0-47.0); HEMOGLOBIN 14.1 g/dl (12.0-15.5); MEAN CORPUSCULAR HEMOGLOBIN 32.6 pg (27.0-33.0); MEAN CORPUSCULAR HGB CONC 31.1 g/dl (32.0-36.5); MEAN CORPUSCULAR VOLUME 104.6 fl (80.0-96.0); PLATELET COUNT, AUTOMATED 173 10^3/uL (150-450); RED BLOOD COUNT 4.33 10^6/uL (4.00-5.40); WHITE BLOOD COUNT 4.5 10^3/uL (4.0-10.0)
[2023-09-02 12:22] LABS: BLOOD UREA NITROGEN 24 MG/DL (9-23); CALCIUM LEVEL 9.3 MG/DL (8.3-10.6); CARBON DIOXIDE LEVEL 31 MMOL/L (20-31); CHLORIDE LEVEL 106 MMOL/L (98-107); CREATININE FOR GFR 0.88 MG/DL (0.55-1.30); GLOMERULAR FILTRATION RATE > 60.0 (>32); GLUCOSE, FASTING 87 MG/DL (74-106); POTASSIUM SERUM 3.9 MMOL/L (3.5-5.1); SODIUM LEVEL 143 MMOL/L (136-145)
== END ==
PROVIDERS: ATTEND Internal Medicine
DX: I50.9 Heart failure, unspecified (principal)

== ENCOUNTER → 2023-09-30 | Outpatient (REF) | payer MEDICARE, MEDICAID ==
[2023-09-30 11:06] LABS: HEMATOCRIT 46.5 % (36.0-47.0); HEMOGLOBIN 14.6 g/dl (12.0-15.5); MEAN CORPUSCULAR HEMOGLOBIN 32.5 pg (27.0-33.0); MEAN CORPUSCULAR HGB CONC 31.4 g/dl (32.0-36.5); MEAN CORPUSCULAR VOLUME 103.6 fl (80.0-96.0); PLATELET COUNT, AUTOMATED 169 10^3/uL (150-450); RED BLOOD COUNT 4.49 10^6/uL (4.00-5.40); WHITE BLOOD COUNT 5.1 10^3/uL (4.0-10.0)
[2023-09-30 11:35] LABS: BLOOD UREA NITROGEN 23 MG/DL (9-23); CALCIUM LEVEL 9.6 MG/DL (8.3-10.6); CARBON DIOXIDE LEVEL 30 MMOL/L (20-31); CHLORIDE LEVEL 105 MMOL/L (98-107); CREATININE FOR GFR 0.87 MG/DL (0.55-1.30); GLOMERULAR FILTRATION RATE > 60.0 (>32); GLUCOSE, FASTING 93 MG/DL (74-106); POTASSIUM SERUM 3.7 MMOL/L (3.5-5.1); SODIUM LEVEL 142 MMOL/L (136-145)
== END ==
PROVIDERS: ATTEND Internal Medicine
DX: I50.9 Heart failure, unspecified (principal)

== ENCOUNTER → 2023-11-04 | Outpatient (REF) | payer MEDICARE, MEDICAID ==
[2023-11-04 12:52] LABS: HEMATOCRIT 43.3 % (36.0-47.0); HEMOGLOBIN 13.5 g/dl (12.0-15.5); MEAN CORPUSCULAR HEMOGLOBIN 32.5 pg (27.0-33.0); MEAN CORPUSCULAR HGB CONC 31.2 g/dl (32.0-36.5); MEAN CORPUSCULAR VOLUME 104.1 fl (80.0-96.0); PLATELET COUNT, AUTOMATED 164 10^3/uL (150-450); RED BLOOD COUNT 4.16 10^6/uL (4.00-5.40); WHITE BLOOD COUNT 4.6 10^3/uL (4.0-10.0)
[2023-11-04 13:29] LABS: BLOOD UREA NITROGEN 20 MG/DL (9-23); CALCIUM LEVEL 8.8 MG/DL (8.3-10.6); CARBON DIOXIDE LEVEL 31 MMOL/L (20-31); CHLORIDE LEVEL 105 MMOL/L (98-107); CREATININE FOR GFR 0.92 MG/DL (0.55-1.30); GLOMERULAR FILTRATION RATE > 60.0 (>32); GLUCOSE, FASTING 99 MG/DL (74-106); POTASSIUM SERUM 4.2 MMOL/L (3.5-5.1); SODIUM LEVEL 140 MMOL/L (136-145)
== END ==
PROVIDERS: ATTEND Internal Medicine
DX: I51.9 Heart disease, unspecified (principal)

== ENCOUNTER → 2023-12-04 | Outpatient (REF) | payer MEDICARE, MEDICAID ==
[~2023-12-04] MED LIST changes: -ROSU20TA61 PO; +ROSU20TA86 PO
[2023-12-04 10:48] LABS: HEMATOCRIT 45.1 % (36.0-47.0); HEMOGLOBIN 14.3 g/dl (12.0-15.5); MEAN CORPUSCULAR HEMOGLOBIN 33.2 pg (27.0-33.0); MEAN CORPUSCULAR HGB CONC 31.7 g/dl (32.0-36.5); MEAN CORPUSCULAR VOLUME 104.6 fl (80.0-96.0); PLATELET COUNT, AUTOMATED 161 10^3/uL (150-450); RED BLOOD COUNT 4.31 10^6/uL (4.00-5.40)
[2023-12-04 11:17] LABS: BLOOD UREA NITROGEN 22 MG/DL (9-23); CALCIUM LEVEL 9.6 MG/DL (8.3-10.6); CARBON DIOXIDE LEVEL 30 MMOL/L (20-31); CHLORIDE LEVEL 108 MMOL/L (98-107); CREATININE FOR GFR 0.87 MG/DL (0.55-1.30); GLOMERULAR FILTRATION RATE > 60.0 (>32); GLUCOSE, FASTING 92 MG/DL (74-106); POTASSIUM SERUM 3.9 MMOL/L (3.5-5.1); SODIUM LEVEL 143 MMOL/L (136-145)
== END ==
PROVIDERS: ATTEND Internal Medicine
DX: I48.91 Unspecified atrial fibrillation (principal)

== ENCOUNTER → 2024-01-01 | Outpatient (REF) | payer MEDICARE, MEDICAID ==
[~2024-01-01] MED LIST changes: -HALO0.052 TOP; +HALO0.056 TOP; +NYST1POW3 TOP; -NYST1POW9 TOP
[2024-01-01 11:24] LABS: HEMOGLOBIN 13.7 g/dl (12.0-15.5); MEAN CORPUSCULAR HEMOGLOBIN 31.9 pg (27.0-33.0); MEAN CORPUSCULAR HGB CONC 31.1 g/dl (32.0-36.5); MEAN CORPUSCULAR VOLUME 102.6 fl (80.0-96.0); PLATELET COUNT, AUTOMATED 153 10^3/uL (150-450); RED BLOOD COUNT 4.29 10^6/uL (4.00-5.40); WHITE BLOOD COUNT 4.7 10^3/uL (4.0-10.0)
[2024-01-01 11:58] LABS: BLOOD UREA NITROGEN 19 MG/DL (9-23); CALCIUM LEVEL 9.7 MG/DL (8.3-10.6); CARBON DIOXIDE LEVEL 30 MMOL/L (20-31); CHLORIDE LEVEL 104 MMOL/L (98-107); CREATININE FOR GFR 0.84 MG/DL (0.55-1.30); GLOMERULAR FILTRATION RATE > 60.0 (>32); GLUCOSE, FASTING 118 MG/DL (74-106); POTASSIUM SERUM 4.3 MMOL/L (3.5-5.1); SODIUM LEVEL 141 MMOL/L (136-145)
== END ==
PROVIDERS: ATTEND Internal Medicine
DX: E03.9 Hypothyroidism, unspecified (principal)

== ENCOUNTER → 2024-02-25 | Outpatient (REF) | payer MEDICARE, MEDICAID ==
[2024-02-25 15:10] LABS: BLOOD UREA NITROGEN 22 MG/DL (9-23); CALCIUM LEVEL 9.1 MG/DL (8.3-10.6); CARBON DIOXIDE LEVEL 31 MMOL/L (20-31); CHLORIDE LEVEL 105 MMOL/L (98-107); CREATININE FOR GFR 0.85 MG/DL (0.55-1.30); GLOMERULAR FILTRATION RATE > 60.0 (>32); GLUCOSE, FASTING 103 MG/DL (74-106); POTASSIUM SERUM 4.3 MMOL/L (3.5-5.1); SODIUM LEVEL 145 MMOL/L (136-145)
== END ==
PROVIDERS: ATTEND Internal Medicine
DX: E78.5 Hyperlipidemia, unspecified (principal)

== ENCOUNTER → 2024-03-04 | Outpatient (REF) | payer MEDICARE, MEDICAID ==
[2024-03-04 15:45] LABS: HEMATOCRIT 46.2 % (36.0-47.0); HEMOGLOBIN 14.3 g/dl (12.0-15.5); MEAN CORPUSCULAR HEMOGLOBIN 32.4 pg (27.0-33.0); MEAN CORPUSCULAR VOLUME 104.5 fl (80.0-96.0); PLATELET COUNT, AUTOMATED 157 10^3/uL (150-450); RED BLOOD COUNT 4.42 10^6/uL (4.00-5.40); WHITE BLOOD COUNT 6.5 10^3/uL (4.0-10.0)
[2024-03-04 16:30] LABS: BLOOD UREA NITROGEN 25 MG/DL (9-23); CALCIUM LEVEL 9.1 MG/DL (8.3-10.6); CARBON DIOXIDE LEVEL 26 MMOL/L (20-31); CHLORIDE LEVEL 107 MMOL/L (98-107); CREATININE FOR GFR 0.88 MG/DL (0.55-1.30); GLOMERULAR FILTRATION RATE > 60.0 (>32); GLUCOSE, FASTING 108 MG/DL (74-106); POTASSIUM SERUM 4.6 MMOL/L (3.5-5.1); SODIUM LEVEL 145 MMOL/L (136-145)
== END ==
PROVIDERS: ATTEND Internal Medicine
DX: I51.9 Heart disease, unspecified (principal)

== ENCOUNTER → 2024-06-01 | Outpatient (REF) | payer MEDICARE, MEDICAID ==
[2024-06-01 11:15] LABS: HEMATOCRIT 45.1 % (36.0-47.0); HEMOGLOBIN 14.4 g/dl (12.0-15.5); MEAN CORPUSCULAR HEMOGLOBIN 32.8 pg (27.0-33.0); MEAN CORPUSCULAR HGB CONC 31.9 g/dl (32.0-36.5); MEAN CORPUSCULAR VOLUME 102.7 fl (80.0-96.0); PLATELET COUNT, AUTOMATED 142 10^3/uL (150-450); RED BLOOD COUNT 4.39 10^6/uL (4.00-5.40); WHITE BLOOD COUNT 4.9 10^3/uL (4.0-10.0)
[2024-06-01 11:38] LABS: HEMOGLOBIN A1c 5.4 % (4.0-6.0)
[2024-06-01 11:45] LABS: CREATININE FOR GFR 0.78 MG/DL (0.55-1.30); GLOMERULAR FILTRATION RATE 74.9 (>32)
[2024-06-01 11:47] LABS: ALBUMIN 3.1 G/DL (3.2-5.2); BILIRUBIN,DIRECT 0.1 MG/DL (<0.4); BILIRUBIN,TOTAL 0.4 MG/DL (0.3-1.2); TOTAL PROTEIN 6.5 G/DL (5.7-8.2)
[2024-06-01 11:49] LABS: THYROID STIMULATING HORMONE 4.147 uIU/ML (0.55-4.78); TOTAL 25(OH) VITAMIN D 38.7 NG/ML (20.0-100.0)
== END ==
PROVIDERS: ATTEND Internal Medicine
DX: I48.91 Unspecified atrial fibrillation (principal); Z79.899 Other long term (current) drug therapy

== ENCOUNTER → 2024-08-31 | Outpatient (REF) | payer MEDICARE, MEDICAID ==
[2024-08-31 10:07] LABS: PLATELET COUNT, AUTOMATED 181 10^3/uL (150-450)
[2024-08-31 10:54] LABS: CALCIUM LEVEL 9.4 MG/DL (8.3-10.6); CARBON DIOXIDE LEVEL 31.0 MMOL/L (20-31); CHLORIDE LEVEL 98.0 MMOL/L (98-107); CREATININE FOR GFR 0.77 MG/DL (0.55-1.30); GLOMERULAR FILTRATION RATE 76.0 (>32); POTASSIUM SERUM 3.6 MMOL/L (3.5-5.1); SODIUM LEVEL 143.0 MMOL/L (136-145)
== END ==
PROVIDERS: ATTEND Internal Medicine
DX: I48.91 Unspecified atrial fibrillation (principal)

== ENCOUNTER → 2024-09-01 | Outpatient (REF) | payer MEDICARE, MEDICAID | PROVIDERS: ATTEND Physician Assistant | DX: R05.9 Cough, unspecified (principal) ==

== ENCOUNTER → 2024-09-14 | Outpatient (REF) | payer MEDICARE, MEDICAID | PROVIDERS: ATTEND Physician Assistant | DX: R22.42 Localized swelling, mass and lump, left lower limb (principal); Z87.81 Personal history of (healed) traumatic fracture; M17.11 Unilateral primary osteoarthritis, right knee ==

== ENCOUNTER → 2024-11-23 | Outpatient (REF) | payer MEDICARE, MEDICAID ==
[2024-11-23 12:56] LABS: PLATELET COUNT, AUTOMATED 195 10^3/uL (150-450)
[2024-11-23 13:35] LABS: CALCIUM LEVEL 9.0 MG/DL (8.3-10.6); CARBON DIOXIDE LEVEL 38.0 MMOL/L (20-31); CHLORIDE LEVEL 96.0 MMOL/L (98-107); CREATININE FOR GFR 0.78 MG/DL (0.55-1.30); GLOMERULAR FILTRATION RATE 74.9 (>32); POTASSIUM SERUM 3.4 MMOL/L (3.5-5.1); SODIUM LEVEL 144.0 MMOL/L (136-145)
== END ==
PROVIDERS: ATTEND Internal Medicine
DX: E03.9 Hypothyroidism, unspecified (principal)

== ENCOUNTER → 2024-11-30 | Outpatient (REF) | payer MEDICARE, MEDICAID ==
[2024-11-30 14:38] LABS: CALCIUM LEVEL 9.3 MG/DL (8.3-10.6); CARBON DIOXIDE LEVEL 38.0 MMOL/L (20-31); CHLORIDE LEVEL 94.0 MMOL/L (98-107); CREATININE FOR GFR 0.86 MG/DL (0.55-1.30); GLOMERULAR FILTRATION RATE 66.6 (>32); POTASSIUM SERUM 3.4 MMOL/L (3.5-5.1); SODIUM LEVEL 142.0 MMOL/L (136-145)
== END ==
PROVIDERS: ATTEND Internal Medicine
DX: E87.6 Hypokalemia (principal)

== ENCOUNTER → 2024-12-14 | Outpatient (REF) | payer MEDICARE, MEDICAID ==
[2024-12-14 13:07] LABS: CALCIUM LEVEL 9.2 MG/DL (8.3-10.6); CARBON DIOXIDE LEVEL 39.0 MMOL/L (20-31); CHLORIDE LEVEL 94.0 MMOL/L (98-107); CREATININE FOR GFR 0.8 MG/DL (0.55-1.30); GLOMERULAR FILTRATION RATE 72.6 (>32); POTASSIUM SERUM 3.6 MMOL/L (3.5-5.1); SODIUM LEVEL 140.0 MMOL/L (136-145)
== END ==
PROVIDERS: ATTEND Internal Medicine
DX: E87.6 Hypokalemia (principal)

== ENCOUNTER → 2024-12-23 | Outpatient (REF) | payer MEDICARE, MEDICAID ==
[~2024-12-23] MED LIST changes: +AQUAOIN12 TP; +DOCU100C17 PO; +ERGO500029 PO; +FLEEENE12 PR; +FLON1SPR NARES; +FURO80TA2 PO; +GUAI100L6 PO; +IPRA0.00 INH; +IPRA0.00 NEB; +LORA-1164 PO; +METO5TA PO; +POTA-151 PO; +POTA-232 PO; -POTA10TA67 PO; +PRED20TA PO; +SODI88SP7 NARES; +SPIR-10 PO; +THERTAB52 PO
== END ==
PROVIDERS: ATTEND Internal Medicine
DX: E03.9 Hypothyroidism, unspecified (principal); Z53.8 Procedure and treatment not carried out for other reasons